=== PATIENT | male | born 1935 | race Caucasian/White ===

== ENCOUNTER 2017-11-18 18:33 | Inpatient (IN) ==
[2017-11-18 21:05] LABS: Bilirubin,Urine Negative (Negative); Blood,Urine Large (Negative); Clarity,Urine Cloudy (Clear); Color,Urine Yellow (Yellow); Glucose,Urine (UA) Normal (Normal); Ketones,Urine Negative (Negative); Leukocyte Esterase,Urine Negative (Negative); Nitrite,Urine Negative (Negative); PH,Urine 5.5 pH Units (5.0-8.0); Protein,Urine 100 mg/dL (Neg-Trace); Specific Gravity,Urine 1.017 (1.010-1.025); Urobilinogen,Urine Normal (Normal)
[2017-11-18] MEDS ORDERED: traMADol 50 MG TABLET PO PRN (21:36)
[2017-11-18] MEDS ORDERED: *HR* HYDROcodone/Acet 5/325 mg TABLET PO PRN (21:36)
[2017-11-18] MEDS ORDERED: Naloxone 0.4 MG/ML INJ IVP PRN (21:36)
[2017-11-18] MEDS ORDERED: Acetaminophen 325 MG TABLET PO PRN (21:36)
[2017-11-18 21:37] LABS: Basophils % 0.2 %; Eosinophils % 0.2 %; Hematocrit 28.2 % (37.5-50.1); Hemoglobin 9.3 g/dL (12.9-16.9); Immature Granulocytes % 1.5 % (0-4); Lymphocytes # 0.9 K/mcL (0.6-4.6); Lymphocytes % 15.4 %; Mean Corpuscular Hemoglobin 28.9 pg (28.0-33.3); Mean Corpuscular Volume 87.6 fL (83.0-100.0); Mean Platelet Volume 9.1 fL (9.4-12.4); Monocytes # 0.3 K/mcL (0.0-1.3); Monocytes % 4.3 %; Neutrophils # 4.7 K/mcL (1.6-8.9); Platelet Count 160 K/mcL (140-400); Red Blood Count 3.22 M/mcL (4.19-5.50); Red Cell Distribution Width 13.3 % (11.5-14.5); Segmented Neutrophils % 78.4 %
[2017-11-18] MEDS ORDERED: Ipratropium/Albuterol Neb 3 ML IH PRN (21:42)
[2017-11-18 21:51] LABS: Albumin 2.7 g/dL (3.5-5.7); Albumin/Globulin Ratio 1.1 (1.1-2.2); Bilirubin,Total 0.4 mg/dL (0.3-1.0); Calcium 9.3 mg/dL (8.6-10.3); Globulin 2.5 g/dL (2.4-3.5); Potassium 3.7 mEq/L (3.5-5.1); Total Protein 5.2 g/dL (6.4-8.9)
[2017-11-18] MEDS ORDERED: Levofloxacin 750 MG/150 ML 750 MG/150 ML BAG IVPB SCH (22:00)
[2017-11-18] MEDS: 0.9 % Sodium Chloride 1,000 ML IVC SCH (22:27)
--- NOTE | 2017-11-18 23:15 | Internal Med History&Physical ---
<Eliazar Conway - Last Filed: 11/19/17 02:40> Date of Encounter: 11/19/17 Time of Encounter: 08:25 Internal Medicine - H&P: HPI Chief complaint: Pneumonia Admitted From: Hospital to Hospital Transfer Plans for Post Hospital Care: Transfer Residential Facility History of present illness: Mr. Sheth is a 82 year old male With history of dementia, CAD, hyperlipidemia, hypertension and recent stroke on 10/14/17 with residual left- sided weakness he was inpatient at the [facility] for rehabilitation. Apparently, while admitted at the [facility], the patient developed high fever and was suspected to have developed pneumonia. He received chest x-rays and then a CT of the abdomen and pelvis which demonstrated bilateral lower lobe infiltrate suspicious for aspiration pneumonia. The patient has apparently had fevers as high as 100.8, has developed worsening cough with sputum production. According to his daughter, the patient has not had these symptoms prior to entering the hospital and she believes that there were developed in the hospital. While at the [facility], the patient was initially started on vancomycin and Zosyn, however he apparently was not improving and continued to have high fevers despite these antibiotics due to concern for worsening infection, the patient was instead transitioned to meropenem, vancomycin, Levaquin and was transferred to [facility] for further workup. Upon arrival, I was able to question the patient's daughter who states that the larger concern is the fact that his left side is extremely weak. Past Med Surg Social Fam HX - Past Medical History Medical history: cancer, dementia, hypertension - Past Surgical History Additional surgical history: back sx; unkown - Social History Smoking Status: Never smoker Smokeless Tobacco Status: No Alcohol use: none Drug use: none Internal Medicine - H&P: Meds 3 Allergy/AdvReac Type Severity Reaction Status Date / Time No Known Allergies Allergy Verified 11/18/17 21:02 ROS unobtainable: due to mental status All Systems PM: A 10-system review of systems was performed and is negative for pertinent findings except as documented above in the HPI. - Constitutional Vitals: Temp Pulse Resp BP Pulse Ox 98.1 F 93 16 137/67 95 11/18/17 20:00 11/18/17 23:00 11/18/17 23:00 11/18/17 23:00 11/18/17 23:00 Exam: Gen: Vitals noted. No acute distress. HEENT: Normocephalic, atraumatic Neck: Supple. No adenopathy. There is a right nodule that is superficial and mobile, likely lipoma Cardiac: RRR, no murmur, +S1/S2 Pulmonary: Bibasilar rales noted on exam, equal chest expansion Abdomen: soft, nontender, no guarding Back: Nontender throughout. Extremities: no BLE edema, nontender calf, no cyanosis or clubbing Neuro: Near-complete left hemiparesis. Patient is semi-fluent, speech pattern and content is not appropriate . AOx1 Psych: Appropriate mood and behavior Internal Med - H&P Results - Labs CBC & Chem 7: 11/18/17 21:20 11/18/17 21:20 Labs: Short CBC 11/18/17 Range/Units 21:20 WBC 6.0 (4.3-11.1) K/mcL Hgb 9.3 L (12.9-16.9) g/dL Hct 28.2 L (37.5-50.1) % Plt Count 160 (140-400) K/mcL Neutrophils # 4.7 (1.6-8.9) K/mcL BMP 11/18/17 21:20 Sodium 138 Potassium 3.7 Chloride 110 H Carbon Dioxide 20 L BUN 32 H Creatinine 2.57 H Glucose 104 Calcium 9.3 Liver Function 11/18/17 Range/Units 21:20 Total Bilirubin 0.4 (0.3-1.0) mg/dL AST 45 H (13-39) Units/L ALT 21 (7-52) Units/L Alkaline Phosphatase 87 (34-104) Units/L Albumin 2.7 L (3.5-5.7) g/dL Urine 11/18/17 Range/Units 20:03 Urine Color Yellow (Yellow) Urine Clarity Cloudy A (Clear) Urine pH 5.5 (5.0-8.0) pH Units Ur Specific [place] 1.017 (1.010-1.025) Urine Protein 100 H (Neg-Trace) mg/dL Urine Glucose (UA) Normal (Normal) mg/dL - Assessment and plan (1) Hospital-acquired pneumonia Current Visit: Yes Status: Acute Assessment and plan: Hospital-acquired pneumonia, demonstrated on chest x-ray and abdominal CT scan The patient has developed clinical signs and symptoms of pneumonia status post CVA This pneumonia is most likely secondary to aspiration considering recent CVA and clinical picture including bibasilar location of pneumonia T101.7, HR 98, WBC 6.0, SpO2 100% on 1L. 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 Patient was started on Aggranox and statin following stroke I will continue these medications at this time Maintain nothing by mouth pending speech eval I will consult PT, OT Qualifiers: CVA mechanism: embolism Precerebral and cerebral artery: middle cerebral artery Laterality of affected vessel: right Qualified Code(s): I63.411 - Cerebral infarction due to embolism of right middle cerebral artery (3) Hypertension Current Visit: Yes Status: Acute Assessment and plan: Continue home nifedipine Qualifiers: Hypertension type: essential hypertension Qualified Code(s): I10 - Essential (primary) hypertension (4) Acute kidney injury superimposed on chronic kidney disease Current Visit: Yes Status: Acute Assessment and plan: HAYDEN on CKD Stage 3 The patient has serum creatinine 2.54 eGFR 24, baseline appears to be ~2.1 He is currently having decent urine output with byrd inplace CT Abd/pelvis at the [facility] showed gas in bladder which was suspicious for possible cystitis Plan -IVF 75mLs/hr up to 2L -Repeat BMP in AM -Repeat UA, Urine culture -Avoid nephrotoxic agents (5) Acute cystitis without hematuria Current Visit: Yes Status: Suspected Assessment and plan: Possible acute cystitis from gas forming organism seen on CT abd/pelvis The patient does have high fever which is more likely explained by pneumonia, however UTI is plausible I will repeat UA, obtain urine culture at this time The patient is being treated with IV Vancomycin, meropenem, levaquin which would cover possible organisms (6) Prostate cancer Current Visit: No Status: Chronic Assessment and plan: Reported history (7) DVT prophylaxis Current Visit: Yes Status: Acute Assessment and plan: SQ Heparin - Time Spent With Patient Total time spent is greater than 50% in coordination of care (as documented) at patient's floor/unit and/or counseling patient: <David De Jesus - Last Filed: 11/19/17 03:48> Date of Encounter: 11/18/17 Time of Encounter: 20:25 Internal Medicine - H&P: HPI History of present illness: Mr. Sheth is a 82 year old male All Systems PM: A 10-system review of systems was performed and is negative for pertinent findings except as documented above in the HPI. - Constitutional Vitals: Temp Pulse Resp BP Pulse Ox 101.7 F H 75 22 122/57 98 11/19/17 00:00 11/19/17 03:08 11/19/17 03:00 11/19/17 03:00 11/19/17 03:00 Internal Med - H&P Results - Labs CBC & Chem 7: 11/18/17 21:20 11/18/17 21:20 Labs: Short CBC 11/18/17 Range/Units 21:20 WBC 6.0 (4.3-11.1) K/mcL Hgb 9.3 L (12.9-16.9) g/dL Hct 28.2 L (37.5-50.1) % Plt Count 160 (140-400) K/mcL Neutrophils # 4.7 (1.6-8.9) K/mcL BMP 11/18/17 21:20 Sodium 138 Potassium 3.7 Chloride 110 H Carbon Dioxide 20 L BUN 32 H Creatinine 2.57 H Glucose 104 Calcium 9.3 Liver Function 11/18/17 Range/Units 21:20 Total Bilirubin 0.4 (0.3-1.0) mg/dL AST 45 H (13-39) Units/L ALT 21 (7-52) Units/L Alkaline Phosphatase 87 (34-104) Units/L Albumin 2.7 L (3.5-5.7) g/dL Urine 11/18/17 Range/Units 20:03 Urine Color Yellow (Yellow) Urine Clarity Cloudy A (Clear) Urine pH 5.5 (5.0-8.0) pH Units Ur Specific [place] 1.017 (1.010-1.025) Urine Protein 100 H (Neg-Trace) mg/dL Urine Glucose (UA) Normal (Normal) mg/dL - Impressions ITS Impressions Chest CT 11/19/17 00:00 IMPRESSION: Aspiration pneumonia involving the bilateral lower lobes with small reactive parapneumonic effusions. Additional aspiration-related sequela include basal predominant airway inflammation and tracheobronchial secretions. Esophageal features suggesting dysmotility and reflux. Mild ascending aortic dilatation measuring up to 4.1 cm in diameter. D/ / Royal Antonio / Royal Antonio Interpreting Provider: Royal Antonio - Attending Attestation I have seen and examined the patient with Dr. Conway and agree with his/her assessment and plan. 82-year-old male who had recent CVA with left-sided weakness was admitted to [facility] on 11/13 after developing high fever and shortness of breath. He was diagnosed with HCAP and has been on treatment with vancomycin and Zosyn which was briefly de-escalated to Unasyn. He had persistent fever and developed worsening consolidation at the lung bases hence was transferred over to [facility] for further management. Prior to the transfer, his antibiotics was escalated to Vanc/Merrem/Levaquin on 11/17. Microbiology results were unrevealing. CT scan at the [facility] also showed thickened bladder wall and gas which could be attributed to Byrd insertion or infectious etiology. He had temperature of 101.7 after the transfer. We will repeat infectious workup and continue the current antibiotics as he was only on it for 24 hours. Also concerning for ongoing aspiration despite dysphagia pureed, nectar thick diet; will keep him NPO and have speech eval. May need to consult pulmonology for bronchoscopy sample and ID for further antibiotics recommendation if he doesn't improve. David De Jesus MD - Time Spent With Patient Total time spent is greater than 50% in coordination of care (as documented) at patient's floor/unit and/or counseling patient:
[2017-11-18] MEDS: Ipratropium/Albuterol Neb 3 ML IH SCH (23:50)
[2017-11-19] MEDS ORDERED: Meropenem 1,000 MG in Water for inj. (sterile) 20 ML 10 ML IVP SCH
[2017-11-19] MEDS: Ipratropium/Albuterol Neb 3 ML IH SCH ×6 (04:18→23:05)
[2017-11-19] MEDS: *HR* Heparin 5,000 UNIT/ML VIAL SQ SCH ×2 (05:28→17:40)
[2017-11-19 05:36] LABS: Basophils % 0.2 %; Eosinophils % 0.2 %; Hematocrit 26.8 % (37.5-50.1); Immature Granulocytes % 1.7 % (0-4); Lymphocytes # 0.9 K/mcL (0.6-4.6); Lymphocytes % 16.7 %; Mean Corpuscular HGB Conc 33.6 g/dL (31.6-35.5); Mean Corpuscular Hemoglobin 29.3 pg (28.0-33.3); Mean Corpuscular Volume 87.3 fL (83.0-100.0); Mean Platelet Volume 9.1 fL (9.4-12.4); Monocytes # 0.2 K/mcL (0.0-1.3); Monocytes % 3.9 %; Platelet Count 148 K/mcL (140-400); Red Blood Count 3.07 M/mcL (4.19-5.50); Red Cell Distribution Width 13.4 % (11.5-14.5); Segmented Neutrophils % 77.3 %
[2017-11-19 05:51] LABS: Platelet Estimate Normal (Normal); Toxic Granulation Present (Not Present)
[2017-11-19 06:08] LABS: Albumin 2.6 g/dL (3.5-5.7); Albumin/Globulin Ratio 1.2 (1.1-2.2); Bilirubin,Total 0.4 mg/dL (0.3-1.0); Calcium 8.9 mg/dL (8.6-10.3); Globulin 2.2 g/dL (2.4-3.5); Magnesium 1.9 mg/dL (1.6-2.6); Potassium 3.3 mEq/L (3.5-5.1); Total Protein 4.8 g/dL (6.4-8.9)
[2017-11-19] MEDS ORDERED: Meropenem 500 MG VIAL ONE (08:39)
[2017-11-19] MEDS ORDERED: NIFEdipine XL (24 HR) 30 MG TAB.ER.24 PO SCH (09:00)
[2017-11-19] MEDS ORDERED: Meropenem 500 MG in Water for inj. (sterile) 20 ML 10 ML IVP SCH (10:00)
[2017-11-19] MEDS ORDERED: Aminoglycoside Consult 1 EACH MC ONE (10:26)
[2017-11-19] MEDS: amLODIPine 5 MG TABLET PO SCH (11:23)
[2017-11-19] MEDS: Aspirin 81 MG TAB.CHEW PO SCH (11:23)
[2017-11-19] MEDS: 0.9 % Sodium Chloride 1,000 ML IVC SCH ×2 (11:23→13:35)
--- NOTE | 2017-11-19 13:07 | Internal Med Progress Note ---
<Lolis Mendez - Last Filed: 11/19/17 16:24> Hospitalist Progress Note - Encounter Date of Encounter: 11/19/17 Time of Encounter: 13:06 - Subjective Interval History: Patient is an 82 yo M with history of cough and persistent left sided weakness s /p stroke on 10/14/17 who presented to the ED on 11/18/17 from [facility] for high fevers and suspected pneumonia. The patient developed high fever and was suspected to have developed pneumonia. CXR and then a CTA abdomen/pelvis demonstrated bilateral lower lobe infiltrate suspicious for aspiration pneumonia without other significant abdominal findings. He was initially started on Vancomycin and Zosyn, however he apparently was not improving thus he was switched to Meropenem, Vancomycin, and Levaquin and was transferred to [facility] for further workup. CT chest here shows likely aspiration pneumonia involving the bilateral lower lobes with small reactive parapneumonic effusions , additional aspiration-related sequela include basal predominant airway inflammation and tracheobronchial secretions, and esophageal features suggesting dysmotility and reflux. Patient does not complain of any pain today, still complains of cough. Could not perform ROS due to AMS. - Exam Vitals: Temp Pulse Resp BP Pulse Ox 99.1 F 86 20 138/76 96 11/19/17 12:05 11/19/17 12:36 11/19/17 12:36 11/19/17 12:36 11/19/17 12:36 Exam: GEN: Ill appearing male in mild acute distress, breathing on room air, A&Ox3, somnolent, able to answer questions but drifts to sleep after ~1 minute HEENT: atraumatic, no cervical lymphadenopathy, right sided 2x3cm superficial fatty lesion, likely lipoma present CV: RRR, no murmurs, no BL LE pitting edema, no JVD RESP: mild end expiratory wheezes, no rales, no rhonchi, no clubbing ABD: BSx4, no organomegaly, nontender to palpation : Colvin present, no gross blood present VASC: non edematous, dorsalis pedis and radial pulses 2/4 - Assessment and Plan (1) Hospital-acquired pneumonia Current Visit: Yes Status: Acute Assessment and Plan: - Likely aspirational source due to impaired swallowing, other possible causes include hospital acquired and community acquired causes - Vitals stable, Patients WBC is 5.2 today, has not had WBC count at [facility] or [facility] , afebrile today, persistent hacking cough, - LA: 1.4, on room air O2 Sat: 95-100. - Speech recommended pureed diet. - Negative MRSA nasal swab at [facility]. [facility] respiratory cultures showed gram positive rods and cocci. - GI and ID consulted, continue IV levofloxacin. - Continue IV vancomycin and meropenem, de-escalation pending ID consult recommendations. - Maintain O2 Sat > 92%. - Start IV protonix to cover for potential chemical pneumonitis. - Sputum and blood cultures pending. Patient NPO, PEG tube placement for nutrition (2) Clostridium difficile colitis Current Visit: Yes Status: Acute Assessment and Plan: - Likely secondary to antibiotic usage - Stool PCR is positive for C Diff, patient had profuse watery diarrhea overnight - Started PO vancomycin 250mg QID, De-escalate antibiotics as tolerated (3) Hypokalemia Current Visit: Yes Status: Acute Assessment and Plan: - K most recent: 3.3 - Given 40 mEq PO, recheck BMP for resolution (4) Acute kidney injury superimposed on chronic kidney disease Current Visit: Yes Status: Acute Assessment and Plan: - Cr now 2.39, down from 2.57 - Appears his baseline is ~2 (5) CVA (cerebral vascular accident) Current Visit: No Status: Chronic Assessment and Plan: - Patient had a Right MCA CVA on 10/14/17 with residual left sided hemiparesis - Will change from aggrenox to ASA and nifedipine to norvasc per nursing recommendations as he seemed to have difficulty swallowing extended release tablets, may require PEG tube and change route of all meds to PEG tube - Speech recommends pureed diet - PT/OT consulted and recommend ECF/SNF placement upon discharge (6) Hypertension Current Visit: Yes Status: Acute Assessment and Plan: - Will change from nifedepine 0.4 to norvasc 10mg due to trouble swallowing extended release tablets (7) DVT prophylaxis Current Visit: Yes Status: Acute - Time Spent with Patient Total time spent is greater than 50% in coordination of care (as documented) at patient's floor/unit and/or counseling patient: Internal Medicine: Result - Labs CBC & Chem 7: 11/19/17 05:22 11/19/17 05:22 Labs: Short CBC 11/18/17 11/19/17 Range/Units 21:20 05:22 WBC 6.0 5.2 (4.3-11.1) K/mcL Hgb 9.3 L 9.0 L (12.9-16.9) g/dL Hct 28.2 L 26.8 L (37.5-50.1) % Plt Count 160 148 (140-400) K/mcL Neutrophils # 4.7 4.0 (1.6-8.9) K/mcL BMP 11/18/17 11/19/17 21:20 05:22 Sodium 138 139 Potassium 3.7 3.3 L Chloride 110 H 114 H Carbon Dioxide 20 L 17 L BUN 32 H 32 H Creatinine 2.57 H 2.39 H Glucose 104 105 Calcium 9.3 8.9 Liver Function 11/18/17 11/19/17 Range/Units 21:20 05:22 Total Bilirubin 0.4 0.4 (0.3-1.0) mg/dL AST 45 H 49 H (13-39) Units/L ALT 21 21 (7-52) Units/L Alkaline Phosphatase 87 93 (34-104) Units/L Albumin 2.7 L 2.6 L (3.5-5.7) g/dL Urine 11/18/17 Range/Units 20:03 Urine Color Yellow (Yellow) Urine Clarity Cloudy A (Clear) Urine pH 5.5 (5.0-8.0) pH Units Ur Specific [place] 1.017 (1.010-1.025) Urine Protein 100 H (Neg-Trace) mg/dL Urine Glucose (UA) Normal (Normal) mg/dL - Impressions Impressions Chest CT 11/19/17 00:00 IMPRESSION: Aspiration pneumonia involving the bilateral lower lobes with small reactive parapneumonic effusions. Additional aspiration-related sequela include basal predominant airway inflammation and tracheobronchial secretions. Esophageal features suggesting dysmotility and reflux. Mild ascending aortic dilatation measuring up to 4.1 cm in diameter. D/ / Royal Antonio / Royal Antonio Interpreting Provider: Royal Antonio Consult Discharge Plan - Plan [facility]errals: [facility]Primary Care Provider[facility] - <Yo Wong Last Filed: 11/19/17 18:30> Hospitalist Progress Note - Encounter Date of Encounter: 11/19/17 - Exam Vitals: Temp Pulse Resp BP Pulse Ox 98.6 F 93 20 146/80 100 11/19/17 17:07 11/19/17 16:39 11/19/17 16:39 11/19/17 16:39 11/19/17 16:39 - Time Spent with Patient Total time spent is greater than 50% in coordination of care (as documented) at patient's floor/unit and/or counseling patient: Internal Medicine: Result - Labs CBC & Chem 7: 11/19/17 05:22 11/19/17 05:22 Labs: Short CBC 11/18/17 11/19/17 Range/Units 21:20 05:22 WBC 6.0 5.2 (4.3-11.1) K/mcL Hgb 9.3 L 9.0 L (12.9-16.9) g/dL Hct 28.2 L 26.8 L (37.5-50.1) % Plt Count 160 148 (140-400) K/mcL Neutrophils # 4.7 4.0 (1.6-8.9) K/mcL BMP 11/18/17 11/19/17 21:20 05:22 Sodium 138 139 Potassium 3.7 3.3 L Chloride 110 H 114 H Carbon Dioxide 20 L 17 L BUN 32 H 32 H Creatinine 2.57 H 2.39 H Glucose 104 105 Calcium 9.3 8.9 Liver Function 11/18/17 11/19/17 Range/Units 21:20 05:22 Total Bilirubin 0.4 0.4 (0.3-1.0) mg/dL AST 45 H 49 H (13-39) Units/L ALT 21 21 (7-52) Units/L Alkaline Phosphatase 87 93 (34-104) Units/L Albumin 2.7 L 2.6 L (3.5-5.7) g/dL Urine 11/18/17 Range/Units 20:03 Urine Color Yellow (Yellow) Urine Clarity Cloudy A (Clear) Urine pH 5.5 (5.0-8.0) pH Units Ur Specific [place] 1.017 (1.010-1.025) Urine Protein 100 H (Neg-Trace) mg/dL Urine Glucose (UA) Normal (Normal) mg/dL - Impressions Impressions Chest CT 11/19/17 00:00 IMPRESSION: Aspiration pneumonia involving the bilateral lower lobes with small reactive parapneumonic effusions. Additional aspiration-related sequela include basal predominant airway inflammation and tracheobronchial secretions. Esophageal features suggesting dysmotility and reflux. Mild ascending aortic dilatation measuring up to 4.1 cm in diameter. D/ / Royal Antonio / Royal Antonio Interpreting Provider: Royal Antonio - Attending Attestation I examined this patient and my medical decision-making was reviewed with the Resident Physician Dr. Mendez. I agree with the documented findings, disposition and treatment plan as described except to the extent set forth below. Mr. Sheth is a 82 year old male With history of dementia, CAD, hyperlipidemia, hypertension and recent stroke on 10/14/17 with residual left- sided weakness he was inpatient at the [facility] for rehabilitation. Apparently, while admitted at the [facility], the patient developed high fever and was suspected to have developed pneumonia. He was admitted into their ICU and started him broad spec abx Zosyn and Vancomycin. However his condition started deteriorating even after switching abx to Meropenem and Vancomycin. Pt was trasnefrred to our ICU y/d. Today he is alert, awake and O to place , person. Denied any CP. Cough + Resp secretions + Gen: A, A, O x 2 Chest: Diminished BS b/l, crackles, ronchi + Heart: s1S2+ a/p 1. Sepsis with Pneumonia 2. Aspiration PNA Broad spec abx.. Switched to Zosyn ID consulted Duoneb and O2 strict NPO IV hydration 4. Dysphagia 5. Esophageal dysmotility 6. GERD placed on PPI BID GI consulted for further eval may need PEG tube placement too will talk to family and GI 7. C. Diff colitis on Vancomycin PO Medically stable to transfer to tele <Lolis Mendez M - Last Filed: 11/19/17 16:24> (5) CVA (cerebral vascular accident) Qualifiers: CVA mechanism: embolism Precerebral and cerebral artery: middle cerebral artery Laterality of affected vessel: right Qualified Code(s): I63.411 - Cerebral infarction due to embolism of right middle cerebral artery (6) Hypertension Qualifiers: Hypertension type: essential hypertension Qualified Code(s): I10 - Essential (primary) hypertension
[2017-11-19] MEDS: Vancomycin Oral Soln 125 MG/2.5 ML UDC PO SCH ×3 (13:37→19:50)
--- NOTE | 2017-11-19 15:57 | Gastroenterology Consult Note ---
<Eliazar Latif Joey - Last Filed: 11/19/17 15:55> Date of Encounter: 11/19/17 Time of Encounter: 11:15 - Assessment and plan (1) C. difficile diarrhea Current Visit: Yes Status: Acute Assessment and plan: Continue PO Vanco. (2) Hospital-acquired pneumonia Current Visit: Yes Status: Acute Assessment and plan: Likely due to aspiration. Plan for EGD with possible PEG tube placement. No family at bedside to discuss PEG tube. (3) CVA (cerebral vascular accident) Current Visit: No Status: Chronic Qualifiers: CVA mechanism: embolism Precerebral and cerebral artery: middle cerebral artery Laterality of affected vessel: right Qualified Code(s): I63.411 - Cerebral infarction due to embolism of right middle cerebral artery (4) GERD (gastroesophageal reflux disease) Current Visit: Yes Status: Acute Assessment and plan: Continue PPI and complete EGD. Qualifiers: Esophagitis presence: esophagitis presence not specified Qualified Code(s) : K21.9 - Gastro-esophageal reflux disease without esophagitis - Time Spent With Patient Total time spent is greater than 50% in coordination of care (as documented) at patient's floor/unit and/or counseling patient: GI History of Present Illness - Data of Consult Patient: new to practice Consult date: 11/19/17 Requesting Physician: Yo Wong MD - Consult Narrative Reason for consult: asspiration pneumonia, GERD History of present illness: Mr. Sheth is a 82 year old male with PMHx of dementia, CAD, HLD, HTN, and recent stroke on 10/14/2017 with residual left-sided weakness. He was residual left-sided weakness. The patient developed high fever and was suspected to have developed pneumonia. CXR and then a CT A/P which demonstrated bilateral lower lobe infiltrate suspicious for aspiration pneumonia. He was initially started on Vancomycin and Zosyn, however he apparently was not improving and continued to have high fevers despite these antibiotics due to concern for worsening infection, the patient was instead transitioned to Meropenem, Vancomycin, Levaquin and was transferred to [facility] for further workup. CT chest here shows aspiration pneumonia involving the bilateral lower lobes with small reactive parapneumonic effusions, additional aspiration-related sequela include basal predominant airway inflammation and tracheobronchial secretions, and esophageal features suggesting dysmotility and reflux. History obtained for chart review as patient is non-verbal and no family at bedside. Procedures: None NSAIDs: None Anticoagulation: None Past Med Surg Social Fam HX - Past Medical History Medical history: cancer, dementia, hypertension - Past Surgical History Additional surgical history: back sx; unkown - Social History Smoking Status: Never smoker Smokeless Tobacco Status: No Alcohol use: none Drug use: none ROS unobtainable: due to mental status - Constitutional Vitals: Temp Pulse Resp BP Pulse Ox 99.1 F 95 16 136/67 100 11/19/17 12:05 11/19/17 15:00 11/19/17 15:14 11/19/17 15:00 11/19/17 15:14 General appearance: Present: cooperative, no acute distress Exam: Responds to name, but patient is nonverbal - Head Head exam: Present: atraumatic, normocephalic - Eye Eye exam: Present: normal appearance, sclera anicteric - ENT ENT exam: Present: mucous membranes dry - Neck Neck exam general surgery: Present: normal inspection, trachea midline - Respiratory Respiratory exam: Present: decreased breath sounds, CTAB. Absent: rales, rhonchi - Cardiovascular Cardiovascular exam: Present: RRR, +S1, +S2 - GI/Abdominal GI/Abdominal exam: Present: soft, no peritoneal signs. Absent: distended, firm , guarding, tenderness - Rectal Rectal exam: Present: deferred - Extremities Exam Extremities exam: Present: warm - Neurological Exam Neurological exam: Present: speech deficit - Skin Skin exam: Present: dry, intact, normal color, warm Results - Labs CBC & Chem 7: 11/19/17 05:22 11/19/17 05:22 Labs: Last Result Calcium 8.9 mg/dL (8.6-10.3) 11/19/17 05:22 Entire Visit Hgb 9.0 g/dL (12.9-16.9) L 11/19/17 05:22 Hct 26.8 % (37.5-50.1) L 11/19/17 05:22 Total Bilirubin 0.4 mg/dL (0.3-1.0) 11/19/17 05:22 AST 49 Units/L (13-39) H 11/19/17 05:22 ALT 21 Units/L (7-52) 11/19/17 05:22 - Impressions Impressions Chest CT 11/19/17 00:00 IMPRESSION: Aspiration pneumonia involving the bilateral lower lobes with small reactive parapneumonic effusions. Additional aspiration-related sequela include basal predominant airway inflammation and tracheobronchial secretions. Esophageal features suggesting dysmotility and reflux. Mild ascending aortic dilatation measuring up to 4.1 cm in diameter. D/ / Royal Antonio / Royal Antonio Interpreting Provider: Royal Antonio Consult Discharge Plan - Plan [facility]errals: [facility] [Primary Care Provider[facility] - <Ruby Wallace - Last Filed: 11/19/17 17:49> Date of Encounter: 11/19/17 - Time Spent With Patient Total time spent is greater than 50% in coordination of care (as documented) at patient's floor/unit and/or counseling patient: GI History of Present Illness - Data of Consult Requesting Physician: Yo Wong MD - Consult Narrative History of present illness: Mr. Sheth is a 82 year old male - Constitutional Vitals: Temp Pulse Resp BP Pulse Ox 98.6 F 93 20 146/80 100 11/19/17 17:07 11/19/17 16:39 11/19/17 16:39 11/19/17 16:39 11/19/17 16:39 Results - Labs CBC & Chem 7: 11/19/17 05:22 11/19/17 05:22 Labs: Last Result Calcium 8.9 mg/dL (8.6-10.3) 11/19/17 05:22 Entire Visit Hgb 9.0 g/dL (12.9-16.9) L 11/19/17 05:22 Hct 26.8 % (37.5-50.1) L 11/19/17 05:22 Total Bilirubin 0.4 mg/dL (0.3-1.0) 11/19/17 05:22 AST 49 Units/L (13-39) H 11/19/17 05:22 ALT 21 Units/L (7-52) 11/19/17 05:22 - Impressions Impressions Chest CT 11/19/17 00:00 IMPRESSION: Aspiration pneumonia involving the bilateral lower lobes with small reactive parapneumonic effusions. Additional aspiration-related sequela include basal predominant airway inflammation and tracheobronchial secretions. Esophageal features suggesting dysmotility and reflux. Mild ascending aortic dilatation measuring up to 4.1 cm in diameter. D/ / Royal Antonio / Royal Antonio Interpreting Provider: Royal Antonio - Attending Attestation I have personally performed a face to face evaluation on this patient. I have reviewed and agree with the care plan. History and Exam by me shows: Patient seen at the bedside. Per patient at home he has been eating well and denies any trouble swallowing. No family member present at the bedside. CT chest did showed esophageal dysmotility along with some reflux finding. On Examination patient abdomen is benign. Assessment: Patient with bilateral pneumonia most probably due to esophageal dysmotility disorder. Rule out any structural causes. Recommendation: EGD to rule out esophageal causes for patient aspiration pneumonia
[2017-11-19] MEDS: Piperacillin/Tazobactam 3.375 GM in 0.9 % Sodium Chloride Mini Bag 100 ML IVPB SCH ×2 (17:40→23:34)
[2017-11-19] MEDS: Pantoprazole 40 MG VIAL IVP SCH (17:40)
--- NOTE | 2017-11-19 23:53 | Infectious Disease Consult ---
Date of Encounter: 11/19/17 Time of Encounter: 15:00 Assessment and Plan (1) Severe sepsis Status: Acute Assessment and plan: had 3 SIRS on admission with HAYDEN secondary to aspiratoin pneumonia and likely C diff colitis await blood cultures to finalize (2) Aspiration pneumonia of both lower lobes due to regurgitated food Status: Acute Assessment and plan: secondary to pharyngeal dysmotility likely to recent CVA causative organism not clear was on vancomycin/meropenem/levofloxacin at the [facility] sputum growing GPC and GPR with final ID pending Keep patient NPO speech pathology to evaluate get sputum culture if possible keep bed elevated at 45 degrees d/c meropenem and levofloxacin start zosyn continue vancomycin until [facility] goal vancomycin trough around 15 monitor labs and for drug toxicity dose adjust antibiotics based on CrCl (3) C. difficile diarrhea Status: Acute Assessment and plan: Severe, first episode Currently on oral Vancomycin if aspiration is a concern we might have to d/c oral vancomycin and start IV flagyl and vancomycin per rectum? try to minimize antibiotics use will d/c with the hospitalist team. (4) Esophageal dysmotility Status: Acute Assessment and plan: secondary to recent CVA? GI consulted (5) Left hemiplegia Status: Acute (6) CVA (cerebral vascular accident) Status: Chronic Qualifiers: CVA mechanism: embolism Precerebral and cerebral artery: middle cerebral artery Laterality of affected vessel: right Qualified Code(s): I63.411 - Cerebral infarction due to embolism of right middle cerebral artery (7) Acute kidney injury superimposed on chronic kidney disease Status: Acute Infectious Disease HPI - Data of Consult Patient: new to practice Consult date: 11/19/17 Requesting Physician: Yo Wong MD Primary Care Provider: [facility] [place] - Consult Narrative Reason for consult: severe sepsis History of present illness: Mr. Sheth is a 82 year old male Patient is an 82 year old gentleman who presented to [place] as a transfer from the [facility] for sepsis, we are consulted today for aspiration pneumonia and C diff. Patient is an 82 year old gentleman with past medical history mentioned below including dementia, CAD, hyperlipidemia, HTN and a recent stroke on 10/14/17 with residual left hemiplegia and dysphagia was at the [facility] for rehab. At the [facility] patient was having high temp and was thought it was due to aspiration pneumonia. Patient also had an ileus most likely per KUB. patient was given meropenem and levofloxacin but continued to do worse clinically so he was transferred to [place] ICU for evaluation. I did review the records from the [facility] and sputum culture was non revealing but showed GPC and GPR. X-rays from the [facility] reviewed as well. Since admission, the patient has been febrile with a Tmax of 101.7F, some tachycardia and tachypnea. He was hemodynamically stable not requiring pressers. labs on admission revealed WBC of 6 with normal diff. BUN/Cr of 32/ 2.57, normal LFTs, normal Urine and C diff positive. random vancomycin was 19. Blood cultures obtained on 11/18 and so far no growth. A CT chest revealed aspiration pneumonia in the bilateral lower lobes with small reactive papa pneumonic effusions. Esophageal features suggesting dysmotility and reflux. Currently patient laying in bed, both daughters at bedside. He tells me he doesnt feel well. He does have a cough that appears non productive. PE remarkable for edema and immobility of the LUE. CC: Yo Wong MD Past Med Surg Social Fam HX - Past Medical History Medical history: cancer, dementia, hypertension - Past Surgical History Additional surgical history: back sx; unkown - Social History Smoking Status: Never smoker Smokeless Tobacco Status: No Alcohol use: none Drug use: none Infectious Disease-CN:Meds NIFEdipine [Adalat cc] 90 mg PO DAILY 11/19/17 [History] 3 Allergy/AdvReac Type Severity Reaction Status Date / Time No Known Allergies Allergy Verified 11/18/17 21:02 Review of systems: 10 point ROS done, negative other for what's mentioned in the HPI Exam - Constitutional Vitals: Temp Pulse Resp BP Pulse Ox 99.4 F 89 17 140/83 94 11/19/17 19:53 11/19/17 23:00 11/19/17 23:05 11/19/17 23:05 11/19/17 23:05 General appearance: febrile, cooperative, disheveled, no acute distress - Head Head exam: Present: atraumatic, normocephalic - Eye Eye exam: Present: EOMI, PERRL, scleral icterus - ENT ENT exam: Present: mucous membranes dry Additional comments: positive oral thrush - Neck Neck exam: Present: normal inspection Additional comments: mobile non tender no painful mass right neck present for 2 years - Respiratory Additional comments: chest expanding symmetrically. some ronchi at the bases and some fine expiratory wheezing. Diminished breath sounds - Cardiovascular Cardiovascular exam: Present: RRR, +S1, +S2 - GI/Abdominal GI/Abdominal exam: Present: hyperactive bowel sounds, soft. Absent: distended, firm, tenderness - Extremities Exam Additional comments: LUE edema and asymmetry compared to right - Neurological Exam Neurological exam: Present: alert, oriented X3, speech deficit. Absent: facial droop Additional comments: left hemiparesis - Psychiatric Psychiatric exam: Present: depressed, flat affect - Skin Skin exam: Present: normal color. Absent: rash Infectious Disease CN: Results - Labs CBC & Chem 7: 11/19/17 05:22 11/19/17 05:22 Cultures: Cultures 11/18/17 21:20 Blood Culture - Preliminary Peripheral Venipuncture Culture is incubating and being continuously monitored for growth. Final report to follow. 11/18/17 21:20 Blood Culture - Preliminary Peripheral Venipuncture Culture is incubating and being continuously monitored for growth. Final report to follow. Serology: Serology 11/19/17 11/18/17 Range/Units 05:45 20:03 Urine Color Yellow (Yellow) Urine Clarity Cloudy A (Clear) Urine pH 5.5 (5.0-8.0) pH Units Ur Specific [place] 1.017 (1.010-1.025) Urine Protein 100 H (Neg-Trace) mg/dL Urine Glucose (UA) Normal (Normal) mg/dL Urine Ketones Negative (Negative) mg/dL Urine Blood Large H (Negative) Urine Nitrite Negative (Negative) Urine Bilirubin Negative (Negative) Urine Urobilinogen Normal (Normal) mg/dL Ur Leukocyte Esterase Negative (Negative) Stl C. diff Tox B Gene Positive A (Negative) Consult Discharge Plan - Plan [facility]errals: [facility] [Primary Care Provider] -
[2017-11-20] MEDS: Ipratropium/Albuterol Neb 3 ML IH SCH ×6 (03:24→23:37)
[2017-11-20 05:40] LABS: Basophils % 0.5 %; Eosinophils # 0.1 K/mcL (0.0-0.6); Eosinophils % 1.3 %; Hematocrit 25.5 % (37.5-50.1); Hemoglobin 8.5 g/dL (12.9-16.9); Lymphocytes # 0.7 K/mcL (0.6-4.6); Lymphocytes % 17.6 %; Mean Corpuscular HGB Conc 33.3 g/dL (31.6-35.5); Mean Corpuscular Hemoglobin 28.2 pg (28.0-33.3); Mean Corpuscular Volume 84.7 fL (83.0-100.0); Mean Platelet Volume 9.2 fL (9.4-12.4); Monocytes # 0.2 K/mcL (0.0-1.3); Monocytes % 5.5 %; Neutrophils # 2.8 K/mcL (1.6-8.9); Platelet Count 164 K/mcL (140-400); Red Blood Count 3.01 M/mcL (4.19-5.50); Red Cell Distribution Width 13.7 % (11.5-14.5); Segmented Neutrophils % 71.1 %
[2017-11-20] MEDS: Pantoprazole 40 MG VIAL IVP SCH ×2 (05:42→17:01)
[2017-11-20] MEDS: *HR* Heparin 5,000 UNIT/ML VIAL SQ SCH ×2 (05:43→17:01)
[2017-11-20 05:58] LABS: Calcium 9.1 mg/dL (8.6-10.3); Potassium 3.3 mEq/L (3.5-5.1)
[2017-11-20] MEDS ORDERED: Potassium Chloride 40 MEQ, Lidocaine 1% 2 ML in D5% in Water 500 ML IVPB ONE (07:39)
[2017-11-20] MEDS ORDERED: Simethicone 40 MG/0.6 ML MLS IR ONE (08:06)
[2017-11-20] MEDS ORDERED: Tetracaine/Benzocaine/Butamben 200MG/SPRAY (100SPY/BOT) MM ONE (08:06)
[2017-11-20] MEDS ORDERED: *HR* FentaNYL (PF) 100 MCG/2 ML VIAL IVP ONE (08:06)
[2017-11-20] MEDS ORDERED: *HR* Midazolam HCl 5 MG/5 ML VIAL IVP ONE (08:06)
--- NOTE | 2017-11-20 08:09 | Pre-Sedation Evaluation ---
Pre-sedation evaluation - Pre-sedation checklist Date of procedure: 11/20/17 Recent Vitals: Last Vital Signs Temp 97.7 F 11/20/17 07:43 Pulse 83 11/20/17 05:00 Resp 12 11/20/17 07:14 BP 142/80 11/20/17 05:00 Pulse Ox 94 11/20/17 07:14 ASA Classification *see protocol: CLASS III-Severe systemic disease, CLASS IV- Severe systemic disease/constant threat to pt's life Plan of Care: Pt appropriate candidate for procedure/moderate/conscious sedation , Risks/benefits of procedure/sedation discussed w/ patient/family Cardiac Registry (Cardio Only) - Functional Capacity - Clincal Frailty Scale
[2017-11-20] MEDS ORDERED: Levofloxacin 500 MG/100 ML 500 MG/100 ML BAG IVPB SCH (09:00)
[2017-11-20] MEDS ORDERED: LEVOFLOXACIN 750 MG/150 ML IVPB SCH (09:00)
[2017-11-20] MEDS: Aspirin 81 MG TAB.CHEW PO SCH (09:02)
[2017-11-20] MEDS: Vancomycin Oral Soln 125 MG/2.5 ML UDC PO SCH ×4 (09:02→20:26)
[2017-11-20] MEDS: amLODIPine 5 MG TABLET PO SCH (09:02)
[2017-11-20] MEDS: Piperacillin/Tazobactam 3.375 GM in 0.9 % Sodium Chloride Mini Bag 100 ML IVPB SCH ×2 (09:03→17:00)
[2017-11-20] MEDS ORDERED: Vancomycin 500 MG in 0.9 % Sodium Chloride Mini Bag 100 ML IVPB ONE (11:00)
--- NOTE | 2017-11-20 13:33 | Infectious Disease Progress No ---
Date of Encounter: 11/20/17 Time of Encounter: 10:30 - Assessment and Plan (1) Severe sepsis Current Visit: Yes Status: Acute The patient had three SIRS criteria on admission with HAYDEN. Likely secondary to aspiration pneumonia and C. diff. Improved. He was afebrile overnight. Tachycardia improved. HAYDEN trending down. Blood cultures drawn n11/18/17 are NGTD x 2 sets. (2) Aspiration pneumonia of both lower lobes due to regurgitated food Current Visit: Yes Status: Acute Location: Bilateral lower lobes. Likely secondary to dysphagia from recent CVA. Causative organism H. influenzae per sputum culture obtained at the [facility]. Speech therapy evaluation noted. Patient tolerated nectar-thick liquids and pureed textures. Repeat sputum culture if able. Aspiration precautions at all times. Continue Zosyn 3.375 grams IV Q8H. Discontinue Vancomycin. Duration of treatment depends on the clinical picture. Monitor renal function and dose-adjust antibiotics. (3) C. difficile diarrhea Current Visit: Yes Status: Acute Severe, initial episode. Currently has rectal tube. Continue Vancomycin 125mg PO QID. Duration of treatment depends on the clinical picture. He will require additional antibiotics for the aspiration pneumonia, so we may need to prolong the course of C. diff treatment past the typical 14 day duration. Continue C. diff precautions per protocol. (4) Acute kidney injury superimposed on chronic kidney disease Current Visit: Yes Status: Acute Likely secondary to sepsis. Improved. Continue to trend. Dose-adjust antibiotics. Avoid nephrotoxins as able. 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 GI consult noted. Status post EGD this morning. Await report and further recommendations from the GI team. (7) Left hemiplegia Current Visit: Yes Status: Acute Secondary to CVA. Frequent position changes/passive ROM per nursing protocol. - Subjective Interval history: Patient seen and examined. No acute events noted overnight. Patient drowsy from EGD performed this morning. Unable to provide me with any review of systems information. Discussed with nursing. At this point, PEG tube is on hold and patient was evaluated by speech therapy and passed trials of pureed texture and nectar thickened liquids. Rectal tube noted to be pain with scant amount of liquid brown stool noted in the tubing. No family at the bedside. Infect Dis PN-Objective Data - Labs CBC & Chem 7: 11/21/17 05:13 11/21/17 05:13 Labs: Laboratory Results - last 24 hr 11/19/17 11/19/17 11/20/17 11:38 23:22 05:00 WBC 4.0 L RBC 3.01 L Hgb 8.5 L Hct 25.5 L MCV 84.7 MCH 28.2 MCHC 33.3 RDW 13.7 Plt Count 164 MPV 9.2 L Immature Gran % 4.0 Seg Neutrophils % 71.1 Lymphocytes % 17.6 Monocytes % 5.5 Eosinophils % 1.3 Basophils % 0.5 Neutrophils # 2.8 Lymphocytes # 0.7 Monocytes # 0.2 Eosinophils # 0.1 Basophils # 0.0 Sodium Potassium Chloride Carbon Dioxide BUN Creatinine Est GFR ( Amer) Est GFR (Non-Af Amer) BUN/Creatinine Ratio Glucose POC Glucose 102 H 91 Calculated Osmolality Calcium Random Vancomycin 11/20/17 05:00 WBC RBC Hgb Hct MCV MCH MCHC RDW Plt Count MPV Immature Gran % Seg Neutrophils % Lymphocytes % Monocytes % Eosinophils % Basophils % Neutrophils # Lymphocytes # Monocytes # Eosinophils # Basophils # Sodium 143 Potassium 3.3 L Chloride 117 H Carbon Dioxide 18 L BUN 32 H Creatinine 2.12 H Est GFR ( Amer) 37 L Est GFR (Non-Af Amer) 30 L BUN/Creatinine Ratio 15 Glucose 97 POC Glucose Calculated Osmolality 303 H Calcium 9.1 Random Vancomycin 13 Cultures: Cultures 11/18/17 20:03 Urine Culture - Preliminary Urine,Clean Catch No growth. 11/18/17 21:20 Blood Culture - Preliminary Peripheral Venipuncture Culture is incubating and being continuously monitored for growth. Final report to follow. 11/18/17 21:20 Blood Culture - Preliminary Peripheral Venipuncture Culture is incubating and being continuously monitored for growth. Final report to follow. Serology 11/19/17 11/18/17 Range/Units 05:45 20:03 Urine Color Yellow (Yellow) Urine Clarity Cloudy A (Clear) Urine pH 5.5 (5.0-8.0) pH Units Ur Specific [place] 1.017 (1.010-1.025) Urine Protein 100 H (Neg-Trace) mg/dL Urine Glucose (UA) Normal (Normal) mg/dL Urine Ketones Negative (Negative) mg/dL Urine Blood Large H (Negative) Urine Nitrite Negative (Negative) Urine Bilirubin Negative (Negative) Urine Urobilinogen Normal (Normal) mg/dL Ur Leukocyte Esterase Negative (Negative) Stl C. diff Tox B Gene Positive A (Negative) Exam - Constitutional Vitals: Temp Pulse Resp BP Pulse Ox 98.2 F 72 16 134/71 97 11/20/17 11:33 11/20/17 13:00 11/20/17 13:00 11/20/17 13:00 11/20/17 13:00 General appearance: average body habitus, no acute distress, no febrile - Head Head exam: Present: atraumatic, normal inspection, normocephalic - Eye Eye exam: Present: normal appearance Additional comments: Patient does not resist passive eye opening. He does not participate in the eye exam. - ENT ENT exam: Present: mucous membranes dry Additional comments: Very poor dentition noted. - Neck Neck exam: Present: normal inspection - Respiratory Respiratory exam: Present: rales (Bilateral bases), rhonchi (Scattered throughout). Absent: respiratory distress, wheezes - Cardiovascular Cardiovascular exam: Present: RRR, +S1, +S2 - GI/Abdominal GI/Abdominal exam: Present: normal bowel sounds, soft. Absent: distended, tenderness Additional comments: Colvin catheter noted to be draining clear urine. Rectal scant amount of brown liquid drainage noted in the tubing. - Extremities Exam Extremities exam: Present: normal inspection. Absent: joint swelling, pedal edema, tenderness - Neurological Exam Neurological exam: Present: altered (Drowsy). Absent: facial droop Additional comments: Does not participate in exam or answer questions. Does respond to painful stimuli. - Skin Skin exam: Present: dry, intact, normal color, warm Consult Discharge Plan - Plan Referrals: [facility] [Primary Care Provider] - - Attending Attestation I examined this patient and my medical decision-making was reviewed with the Resident Physician. I agree with the documented findings, disposition and treatment plan as described except to the extent set forth below.
--- NOTE | 2017-11-20 14:21 | Internal Med Progress Note ---
<Lolis Mendez - Last Filed: 11/20/17 16:13> Hospitalist Progress Note - Encounter Date of Encounter: 11/20/17 Time of Encounter: 14:21 - Subjective Interval History: Patient is an 82 yo M with history of cough and persistent left sided weakness s /p stroke on 10/14/17 who presented to the ED on 11/18/17 from [facility] for high fevers and suspected pneumonia. The patient developed high fever and was suspected to have developed pneumonia. CXR and then a CTA abdomen/pelvis demonstrated bilateral lower lobe infiltrate suspicious for aspiration pneumonia without other significant abdominal findings. He was initially started on Vancomycin and Zosyn, however he apparently was not improving thus he was switched to Meropenem, Vancomycin, and Levaquin and was transferred to [facility] for further workup. CT chest here shows likely aspiration pneumonia involving the bilateral lower lobes with small reactive parapneumonic effusions , additional aspiration-related sequela include basal predominant airway inflammation and tracheobronchial secretions, and esophageal features suggesting dysmotility and reflux. Patient does not complain of any pain today, still complains of cough. Much more alert and participates well with exam. - Exam Vitals: Temp Pulse Resp BP Pulse Ox 98.2 F 72 16 134/71 97 11/20/17 11:33 11/20/17 13:00 11/20/17 13:00 11/20/17 13:00 11/20/17 13:00 Exam: GEN: Ill appearing male breathing on room air, A&Ox3, more alert today, able to answer questions appropriately and participate in exam HEENT: atraumatic, no cervical lymphadenopathy, right sided 2x3cm superficial fatty lesion overlying right SCM, likely lipoma present CV: RRR, no murmurs, no BL LE pitting edema, no JVD RESP: mild end expiratory wheezes, no rales, no rhonchi, no clubbing ABD: BSx4, no organomegaly, nontender to palpation : Colvin present, no gross blood present, rectal tube draining brown, liquid stool VASC: LUE edematous, likely dependent, dorsalis pedis and radial pulses 2/4 - Assessment and Plan (1) Hospital-acquired pneumonia Current Visit: Yes Status: Acute Assessment and Plan: - Likely aspirational, [facility] the causative sputum organism appears to be H. influenza - Patient is on room air, vitals are stable today, white count at 4. - Blood cultures drawn but pending, no growth to date - Can be moved to the floor from ICU, was unable to move yesterday due to bed availability - Changed antibiotics per ID recommendations yesterday to Vanc and Zosyn, stopped Levaquin and Mirepenam. Today ID recommends holding IV Vanc, will continue only on IV zosyn. - F[facility] with [facility] to check cultures done by [facility] for culture sensitivities (2) Clostridium difficile colitis Current Visit: Yes Status: Acute Assessment and Plan: - Likely secondary to antibiotic usage, stool PCR was positive for C. difficile - Patient has received 1 day of PO vanc, continues on rectal tube - Due to high aspiration risk, will switch to IV flagyl or Vancomycin per rectum should he develop any signs of active aspiration, none present at this time (3) Esophageal dysmotility Current Visit: Yes Status: Acute Assessment and Plan: - likely related to stroke in October 2017 - EGD performed today by GI showed no structural abnormalities and no necessity of PEG tube. - Patient can be started on pureed diet per speech recommendations - keep patient on PPI for 8 weeks per GI recommendations. On protonix 40mg now (4) Hypokalemia Current Visit: Yes Status: Acute Assessment and Plan: - K on recheck is persistent at 3.3 - Given 40 mEq IV KCl with lidocaine, recheck BMP this evening for resolution (5) Acute kidney injury superimposed on chronic kidney disease Current Visit: Yes Status: Acute Assessment and Plan: - GFR and Cr are improving, Cr is back to baseline at 2.12 - Continue IV Fluids, follow GFR, Cr for improvement. Hold nephrotoxic medications. (6) CVA (cerebral vascular accident) Current Visit: No Status: Chronic Assessment and Plan: - Persistent hemiplegia on left side with dependent swelling of left arm due to inactivity, will continue to monitor - Continue ASA and lipitor - Speech recommends pureed diet - PT/OT consulted and recommend ECF/SNF placement upon discharge - [facility] has bed hold for patient to return upon discharge. (7) Hypertension Current Visit: Yes Status: Acute Assessment and Plan: - Continues on norvasc 10mg, changed from nifedepine 0.4mg due to trouble swallowing extended release tablets (8) DVT prophylaxis Current Visit: Yes Status: Acute Assessment and Plan: - Continues on heparin - Time Spent with Patient Total time spent is greater than 50% in coordination of care (as documented) at patient's floor/unit and/or counseling patient: Internal Medicine: Result - Labs CBC & Chem 7: 11/20/17 05:00 11/20/17 05:00 Labs: Short CBC 11/20/17 Range/Units 05:00 WBC 4.0 L (4.3-11.1) K/mcL Hgb 8.5 L (12.9-16.9) g/dL Hct 25.5 L (37.5-50.1) % Plt Count 164 (140-400) K/mcL Neutrophils # 2.8 (1.6-8.9) K/mcL BMP 11/20/17 05:00 Sodium 143 Potassium 3.3 L Chloride 117 H Carbon Dioxide 18 L BUN 32 H Creatinine 2.12 H Glucose 97 Calcium 9.1 Consult Discharge Plan - Plan [facility]errals: [facility] [Primary Care Provider] - <Tyson Kate - Last Filed: 11/20/17 17:34> Hospitalist Progress Note - Encounter Date of Encounter: 11/20/17 - Exam Vitals: Temp Pulse Resp BP Pulse Ox 98.1 F 89 16 134/71 97 11/20/17 16:11 11/20/17 14:25 11/20/17 15:18 11/20/17 13:00 11/20/17 15:18 - Summary of Assessment and Plan Summary of Assessment and Plan: I examined this patient and my medical decision-making was reviewed with the Resident Physician Dr. Marquez. I agree with the documented findings, disposition and treatment plan as described except to the extent set forth below. - Time Spent with Patient Total time spent is greater than 50% in coordination of care (as documented) at patient's floor/unit and/or counseling patient: Internal Medicine: Result - Labs CBC & Chem 7: 11/20/17 05:00 11/20/17 05:00 Labs: Short CBC 11/20/17 Range/Units 05:00 WBC 4.0 L (4.3-11.1) K/mcL Hgb 8.5 L (12.9-16.9) g/dL Hct 25.5 L (37.5-50.1) % Plt Count 164 (140-400) K/mcL Neutrophils # 2.8 (1.6-8.9) K/mcL BMP 11/20/17 05:00 Sodium 143 Potassium 3.3 L Chloride 117 H Carbon Dioxide 18 L BUN 32 H Creatinine 2.12 H Glucose 97 Calcium 9.1 - Attending Attestation I examined this patient and my medical decision-making was reviewed with the Resident Physician Dr. Marquez. I agree with the documented findings, disposition and treatment plan as described except to the extent set forth below. <Lolis Mendez - Last Filed: 11/20/17 16:13> (6) CVA (cerebral vascular accident) Qualifiers: CVA mechanism: embolism Precerebral and cerebral artery: middle cerebral artery Laterality of affected vessel: right Qualified Code(s): I63.411 - Cerebral infarction due to embolism of right middle cerebral artery (7) Hypertension Qualifiers: Hypertension type: essential hypertension Qualified Code(s): I10 - Essential (primary) hypertension
[2017-11-21] MEDS: Piperacillin/Tazobactam 3.375 GM in 0.9 % Sodium Chloride Mini Bag 100 ML IVPB SCH ×3 (00:26→17:27)
[2017-11-21] MEDS: Ipratropium/Albuterol Neb 3 ML IH SCH ×6 (03:49→23:11)
[2017-11-21] MEDS: *HR* Heparin 5,000 UNIT/ML VIAL SQ SCH ×2 (05:27→17:26)
[2017-11-21] MEDS: Pantoprazole 40 MG VIAL IVP SCH ×2 (05:27→17:26)
[2017-11-21 05:34] LABS: Hematocrit 28.1 % (37.5-50.1); Hemoglobin 9.4 g/dL (12.9-16.9); Mean Corpuscular HGB Conc 33.5 g/dL (31.6-35.5); Mean Corpuscular Hemoglobin 29.2 pg (28.0-33.3); Mean Corpuscular Volume 87.3 fL (83.0-100.0); Mean Platelet Volume 8.7 fL (9.4-12.4); Platelet Count 193 K/mcL (140-400); Red Blood Count 3.22 M/mcL (4.19-5.50); Red Cell Distribution Width 13.6 % (11.5-14.5)
[2017-11-21 05:55] LABS: Potassium 3.5 mEq/L (3.5-5.1)
[2017-11-21 06:04] LABS: Eosinophils # 0.3 K/mcL (0.0-0.6); Lymphocytes # 0.2 K/mcL (0.6-4.6); Monocytes # 0.1 K/mcL (0.0-1.3); Neutrophils # 3.8 K/mcL (1.6-8.9); Platelet Estimate Normal (Normal)
[2017-11-21] MEDS: Aspirin 81 MG TAB.CHEW PO SCH (08:35)
[2017-11-21] MEDS: amLODIPine 5 MG TABLET PO SCH (08:35)
[2017-11-21] MEDS: Vancomycin Oral Soln 125 MG/2.5 ML UDC PO SCH ×4 (08:36→21:46)
--- NOTE | 2017-11-21 12:21 | Infectious Disease Progress No ---
Date of Encounter: 11/21/17 Time of Encounter: 12:21 - Assessment and Plan (1) Severe sepsis Current Visit: Yes Status: Acute The patient had three SIRS criteria on admission with HAYDEN. Likely secondary to aspiration pneumonia and C. diff. Improved. He was afebrile overnight. Tachycardia improved. HAYDEN trending down. Blood cultures drawn 11/18/17 are NGTD x 2 sets. (2) Aspiration pneumonia of both lower lobes due to regurgitated food Current Visit: Yes Status: Acute Location: Bilateral lower lobes. Likely secondary to dysphagia from recent CVA. Causative organism H. influenzae per sputum culture obtained at the [facility]. Speech therapy evaluation noted. Patient tolerated nectar-thick liquids and pureed textures. Repeat sputum culture if able. Aspiration precautions at all times. Continue Zosyn 3.375 grams IV Q8H. Duration of treatment depends on the clinical picture. Monitor renal function and dose-adjust antibiotics. (3) C. difficile diarrhea Current Visit: Yes Status: Acute Severe, initial episode. Currently has rectal tube. Continue Vancomycin 125mg PO QID. Duration of treatment depends on the clinical picture. He will require additional antibiotics for the aspiration pneumonia, so we may need to prolong the course of C. diff treatment past the typical 14 day duration. Continue C. diff precautions per protocol. (4) Acute kidney injury superimposed on chronic kidney disease Current Visit: Yes Status: Acute Likely secondary to sepsis. Improved. Continue to trend. Dose-adjust antibiotics. Avoid nephrotoxins as able. 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 GI consult noted. Status post EGD that showed esophagitis, but no other abnormality. (7) Left hemiplegia Current Visit: Yes Status: Acute Secondary to CVA. Frequent position changes/passive ROM per nursing protocol. (8) Dysphagia Current Visit: Yes Status: Acute Likely secondary to recent CVA. SYSTEMS ENG evaluation noted. Qualifiers: Qualified Code(s): R13.10 - Dysphagia, unspecified - Subjective Interval history: Patient seen and examined. No acute events noted overnight. Patient denies fevers, chills, or rigors. Denies chest pain, shortness of breath, or cough. Denies nausea, vomiting, or abdominal pain. Byrd catheter and rectal tube remain patent. Per patient, appetite okay. States he feels tired, but has no other complaints. Per nursing, going to remove byrd and rectal tube today and stools are more formed. Infect Dis PN-Objective Data - Labs CBC & Chem 7: 11/22/17 03:47 11/22/17 03:47 Labs: Laboratory Results - last 24 hr 11/20/17 11/20/17 11/21/17 04:40 20:23 00:23 WBC RBC Hgb Hct MCV MCH MCHC RDW Plt Count MPV Seg Neutrophils % Lymphocytes % Monocytes % Eosinophils % Metamyelocytes % Myelocytes % Promyelocytes % Neutrophils # Lymphocytes # Monocytes # Eosinophils # Platelet Estimate Sodium Potassium Chloride Carbon Dioxide BUN Creatinine Est GFR ( Amer) Est GFR (Non-Af Amer) BUN/Creatinine Ratio Glucose POC Glucose 99 137 H 123 H Calculated Osmolality Calcium 11/21/17 11/21/17 05:13 05:13 WBC 4.6 RBC 3.22 L Hgb 9.4 L Hct 28.1 L MCV 87.3 MCH 29.2 MCHC 33.5 RDW 13.6 Plt Count 193 MPV 8.7 L Seg Neutrophils % 82.0 Lymphocytes % 4.0 Monocytes % 2.0 Eosinophils % 6.0 Metamyelocytes % 2.0 H Myelocytes % 2.0 H Promyelocytes % 2.0 H Neutrophils # 3.8 Lymphocytes # 0.2 L Monocytes # 0.1 Eosinophils # 0.3 Platelet Estimate Normal Sodium 143 Potassium 3.5 Chloride 117 H Carbon Dioxide 19 L BUN 29 H Creatinine 1.99 H Est GFR ( Amer) 39 L Est GFR (Non-Af Amer) 32 L BUN/Creatinine Ratio 15 Glucose 110 H POC Glucose Calculated Osmolality 302 H Calcium 9.0 Cultures: Cultures 11/18/17 20:03 Urine Culture - Final Urine,Clean Catch No growth. 11/18/17 21:20 Blood Culture - Preliminary Peripheral Venipuncture Culture is incubating and being continuously monitored for growth. Final report to follow. 11/18/17 21:20 Blood Culture - Preliminary Peripheral Venipuncture Culture is incubating and being continuously monitored for growth. Final report to follow. Serology 11/19/17 11/18/17 Range/Units 05:45 20:03 Urine Color Yellow (Yellow) Urine Clarity Cloudy A (Clear) Urine pH 5.5 (5.0-8.0) pH Units Ur Specific [place] 1.017 (1.010-1.025) Urine Protein 100 H (Neg-Trace) mg/dL Urine Glucose (UA) Normal (Normal) mg/dL Urine Ketones Negative (Negative) mg/dL Urine Blood Large H (Negative) Urine Nitrite Negative (Negative) Urine Bilirubin Negative (Negative) Urine Urobilinogen Normal (Normal) mg/dL Ur Leukocyte Esterase Negative (Negative) Stl C. diff Tox B Gene Positive A (Negative) Exam - Constitutional Vitals: Temp Pulse Resp BP Pulse Ox 98.2 F 75 18 143/72 97 11/21/17 11:34 11/21/17 10:00 11/21/17 11:30 11/21/17 10:00 11/21/17 11:30 General appearance: average body habitus, cooperative, no acute distress - Head Head exam: Present: atraumatic, normal inspection, normocephalic - Eye Eye exam: Present: EOMI, normal appearance, PERRL Pupils: Present: normal accommodation - ENT ENT exam: Present: mucous membranes dry Additional comments: Poor dentition noted. - Neck Neck exam: Present: normal inspection - Respiratory Respiratory exam: Present: CTAB, rales (right base). Absent: respiratory distress, rhonchi, wheezes - Cardiovascular Cardiovascular exam: Present: RRR, +S1, +S2 - GI/Abdominal GI/Abdominal exam: Present: normal bowel sounds, soft. Absent: distended, tenderness Additional comments: Byrd catheter noted to be draining clear yellow urine. Rectal tube with small amount of liquid brown stool. - Extremities Exam Extremities exam: Absent: joint swelling, pedal edema, tenderness - Neurological Exam Neurological exam: Present: alert. Absent: oriented X3 (Oriented to person and time only.), no focal deficits (Paralysis noted to the LUE and LLE) - Psychiatric Psychiatric exam: Present: normal affect, normal mood - Skin Skin exam: Present: dry, intact, normal color, warm Consult Discharge Plan - Plan [facility]errals: [facility]Primary Care Provider] - - Attending Attestation I examined this patient and my medical decision-making was reviewed with Xiomara Grande CNP. I agree with the documented findings, disposition and treatment plan as described except to the extent set forth below.
--- NOTE | 2017-11-21 13:38 | Internal Med Progress Note ---
<Lolis Mendez - Last Filed: 11/21/17 13:48> Hospitalist Progress Note - Encounter Date of Encounter: 11/21/17 Time of Encounter: 13:36 - Subjective Interval History: Patient is an 82 yo M with history of cough and persistent left sided weakness s /p stroke on 10/14/17 who presented to the ED on 11/18/17 from [facility] for high fevers and suspected pneumonia. The patient developed high fever and was suspected to have developed pneumonia. CXR and then a CTA abdomen/pelvis demonstrated bilateral lower lobe infiltrate suspicious for aspiration pneumonia without other significant abdominal findings. He was initially started on Vancomycin and Zosyn, however he apparently was not improving thus he was switched to Meropenem, Vancomycin, and Levaquin and was transferred to [facility] for further workup. CT chest here shows likely aspiration pneumonia involving the bilateral lower lobes with small reactive parapneumonic effusions , additional aspiration-related sequela include basal predominant airway inflammation and tracheobronchial secretions, and esophageal features suggesting dysmotility and reflux. Patient does not complain of any pain today, still complains of cough. Much more alert and participates well with exam. - Exam Vitals: Temp Pulse Resp BP Pulse Ox 98.2 F 75 18 143/72 97 11/21/17 11:34 11/21/17 10:00 11/21/17 11:30 11/21/17 10:00 11/21/17 11:30 Exam: GEN: Ill appearing male breathing on room air, A&Ox3, more alert today, able to answer questions appropriately and participate in exam HEENT: atraumatic, no cervical lymphadenopathy, right sided 2x3cm superficial fatty lesion overlying right SCM, likely lipoma present CV: RRR, no murmurs, no BL LE pitting edema, no JVD RESP: mild end expiratory wheezes, no rales, no rhonchi, no clubbing ABD: BSx4, no organomegaly, nontender to palpation : Byrd present, no gross blood present, rectal tube draining brown, liquid stool VASC: LUE edematous, likely dependent, dorsalis pedis and radial pulses 2/4 - Assessment and Plan (1) Hospital-acquired pneumonia Current Visit: Yes Status: Acute Assessment and Plan: - Likely aspirational source due to impaired swallowing, other possible causes include hospital acquired and community acquired causes - Patient is on room air, vitals are stable today, no leukocytosis - [facility], blood cultures drawn have no growth to date. Sputum cultures positive for H. flu - Patient still on Zosyn for coverage. Deescalate pending growth of blood cultures. - Order in to move patient to 2A, 2N or 2NE. - Continue IV protonix per GI recommendations. (2) Clostridium difficile colitis Current Visit: Yes Status: Acute Assessment and Plan: - Likely secondary to antibiotic usage, stool PCR was positive for C. diff - Patient is on day 2 of PO vancomycin, stool is bristol 6, per ID recommendations continue PO vancomycin for 14 days total - Continue contact precautions - Remove rectal tube today to monitor stool production (3) Esophageal dysmotility Current Visit: Yes Status: Ruled-out Assessment and Plan: - Continues on pureed diet and speech therapy (4) Hypokalemia Current Visit: Yes Status: Acute Assessment and Plan: K is up to 3.5 from 3.3 Continue to monitor with BMPs (5) Acute kidney injury superimposed on chronic kidney disease Current Visit: Yes Status: Acute Assessment and Plan: - GFR and Cr are improving, Cr is back to baseline. - Continue to monitor with BMPs. Hold nephrotoxic medications - Will d/c byrd today and monitor urine output (6) CVA (cerebral vascular accident) Current Visit: No Status: Chronic Assessment and Plan: - Persistent left sided hemiparesis - LUE edematous, likely dependent swelling but will obtain LUE doppler US to ensure there is no DVT given immobility (7) Hypertension Current Visit: Yes Status: Acute Assessment and Plan: Continues on norvasc 10mg (8) DVT prophylaxis Current Visit: Yes Status: Acute Assessment and Plan: - Continue on heparin - Time Spent with Patient Total time spent is greater than 50% in coordination of care (as documented) at patient's floor/unit and/or counseling patient: Internal Medicine: Result - Labs CBC & Chem 7: 11/21/17 05:13 11/21/17 05:13 Labs: Short CBC 11/21/17 Range/Units 05:13 WBC 4.6 (4.3-11.1) K/mcL Hgb 9.4 L (12.9-16.9) g/dL Hct 28.1 L (37.5-50.1) % Plt Count 193 (140-400) K/mcL Neutrophils # 3.8 (1.6-8.9) K/mcL [facility] 11/21/17 05:13 Sodium 143 Potassium 3.5 Chloride 117 H Carbon Dioxide 19 L BUN 29 H Creatinine 1.99 H Glucose 110 H Calcium 9.0 Consult Discharge Plan - Plan Referrals: [facility] [Primary Care Provider] - <Lorena Kateul Lalo - Last Filed: 11/21/17 19:01> Hospitalist Progress Note - Encounter Date of Encounter: 11/21/17 - Exam Vitals: Temp Pulse Resp BP Pulse Ox 98.0 F 82 16 133/69 97 11/21/17 16:23 11/21/17 16:08 11/21/17 16:08 11/21/17 16:08 11/21/17 16:02 - Time Spent with Patient Total time spent is greater than 50% in coordination of care (as documented) at patient's floor/unit and/or counseling patient: Internal Medicine: Result - Labs CBC & Chem 7: 11/21/17 05:13 11/21/17 05:13 Labs: Short CBC 11/21/17 Range/Units 05:13 WBC 4.6 (4.3-11.1) K/mcL Hgb 9.4 L (12.9-16.9) g/dL Hct 28.1 L (37.5-50.1) % Plt Count 193 (140-400) K/mcL Neutrophils # 3.8 (1.6-8.9) K/mcL [facility] 11/21/17 05:13 Sodium 143 Potassium 3.5 Chloride 117 H Carbon Dioxide 19 L BUN 29 H Creatinine 1.99 H Glucose 110 H Calcium 9.0 - Attending Attestation I examined this patient and my medical decision-making was reviewed with the Resident Physician Dr. Marquez. I agree with the documented findings, disposition and treatment plan as described except to the extent set forth below. <Lolis Mendez M - Last Filed: 11/21/17 13:48> (6) CVA (cerebral vascular accident) Qualifiers: CVA mechanism: embolism Precerebral and cerebral artery: middle cerebral artery Laterality of affected vessel: right Qualified Code(s): I63.411 - Cerebral infarction due to embolism of right middle cerebral artery (7) Hypertension Qualifiers: Hypertension type: essential hypertension Qualified Code(s): I10 - Essential (primary) hypertension
[2017-11-22] MEDS: Piperacillin/Tazobactam 3.375 GM in 0.9 % Sodium Chloride Mini Bag 100 ML IVPB SCH ×3 (01:20→16:46)
[2017-11-22] MEDS: Ipratropium/Albuterol Neb 3 ML IH SCH ×3 (04:16→11:39)
[2017-11-22 04:51] LABS: Basophils % 0.5 %; Eosinophils # 0.1 K/mcL (0.0-0.6); Eosinophils % 2.5 %; Hematocrit 25.1 % (37.5-50.1); Hemoglobin 8.3 g/dL (12.9-16.9); Immature Granulocytes % 6.9 % (0-4); Lymphocytes # 0.6 K/mcL (0.6-4.6); Lymphocytes % 13.9 %; Mean Corpuscular HGB Conc 33.1 g/dL (31.6-35.5); Mean Corpuscular Hemoglobin 27.9 pg (28.0-33.3); Mean Corpuscular Volume 84.2 fL (83.0-100.0); Mean Platelet Volume 9.1 fL (9.4-12.4); Monocytes # 0.3 K/mcL (0.0-1.3); Monocytes % 7.6 %; Platelet Count 191 K/mcL (140-400); Red Blood Count 2.98 M/mcL (4.19-5.50); Red Cell Distribution Width 13.8 % (11.5-14.5); Segmented Neutrophils % 68.6 %
[2017-11-22 05:06] LABS: Calcium 8.8 mg/dL (8.6-10.3); Potassium 3.4 mEq/L (3.5-5.1)
[2017-11-22 05:20] LABS: Platelet Estimate Normal (Normal); Toxic Granulation Present (Not Present)
[2017-11-22] MEDS: *HR* Heparin 5,000 UNIT/ML VIAL SQ SCH ×2 (05:35→16:46)
[2017-11-22] MEDS: Pantoprazole 40 MG VIAL IVP SCH ×2 (06:35→16:47)
[2017-11-22] MEDS: amLODIPine 5 MG TABLET PO SCH (09:17)
[2017-11-22] MEDS: Aspirin 81 MG TAB.CHEW PO SCH (09:17)
[2017-11-22] MEDS: Vancomycin Oral Soln 125 MG/2.5 ML UDC PO SCH ×4 (09:18→21:27)
[2017-11-22] MEDS ORDERED: Potassium Chloride Elixir 20 MEQ/15 ML UDC PO ONE (09:19)
--- NOTE | 2017-11-22 09:34 | Internal Med Progress Note ---
<Lolis Mendez - Last Filed: 11/22/17 13:37> Hospitalist Progress Note - Encounter Date of Encounter: 11/22/17 Time of Encounter: 09:32 - Subjective Interval History: Patient is an 82 yo M with history of cough and persistent left sided weakness s /p stroke on 10/14/17 who presented to the ED on 11/18/17 from [facility] for high fevers and suspected pneumonia. The patient developed high fever and was suspected to have developed pneumonia. CXR and then a CTA abdomen/pelvis demonstrated bilateral lower lobe infiltrate suspicious for aspiration pneumonia without other significant abdominal findings. He was initially started on Vancomycin and Zosyn, however he apparently was not improving thus he was switched to Meropenem, Vancomycin, and Levaquin and was transferred to [facility] for further workup. CT chest here shows likely aspiration pneumonia involving the bilateral lower lobes with small reactive parapneumonic effusions , additional aspiration-related sequela include basal predominant airway inflammation and tracheobronchial secretions, and esophageal features suggesting dysmotility and reflux. Patient is confused today as compared to yesterday. Was A&Ox1, long pauses in response. Was unsure of current state of health or location. Per nurse, patient did not stool overnight. - Exam Vitals: Temp Pulse Resp BP Pulse Ox 97.4 F L 79 16 176/102 96 11/22/17 05:11 11/22/17 07:53 11/22/17 07:53 11/22/17 07:53 11/22/17 07:53 Exam: GEN: Ill appearing male breathing on room air, A&O to person and time but not place, more somnolent and requires frequent repeated questions and redirection HEENT: atraumatic, no cervical lymphadenopathy, right sided 2x3cm superficial fatty lesion overlying right SCM, likely lipoma present CV: RRR, no murmurs, no BL LE pitting edema, no JVD RESP: mild end expiratory wheezes, no rales, no rhonchi, no clubbing ABD: BSx4, no organomegaly, nontender to palpation : No urinary or rectal tube VASC: LUE edematous, likely dependent, dorsalis pedis and radial pulses 2/4 - Assessment and Plan (1) Hospital-acquired pneumonia Current Visit: Yes Status: Acute Assessment and Plan: - Likely aspirational source due to impaired swallowing, other possible causes include hospital acquired and community acquired causes - Patient step-down to 2NE from ICU. Is on room air, vitals are stable today, no leukocytosis but is confused today, unsure of his baseline - Per [facility] and BCs taken at [facility], no growth to date. Patient is seated upright in bed to prevent aspiration - Patient still on Zosyn for coverage - Deescalate pending growth of blood cultures - Continue IV protonix per GI recommendations - Upon D/C with Azithromycin for 5 days or with antibiotic recommended by ID (2) Clostridium difficile colitis Current Visit: Yes Status: Acute Assessment and Plan: - Likely secondary to antibiotic usage, stool PCR was positive for C.Diff - Patient is on day 3 of PO vancomycin, did not stool overnight, per ID recommendations continue PO vancomycin for 14 days total, possibly longer course. Continue contact precautions. (3) Dementia Current Visit: Yes Status: Suspected Assessment and Plan: Patient today is not oriented to place or time. He requires frequent redirection and repeated questions. Likely this is a long standing change from his recent stroke but unsure of his baseline and there is no family to discuss with. Likely fluctuates in alertness and orientation but will continue to monitor for changes (4) Esophageal dysmotility Current Visit: Yes Status: Ruled-out Assessment and Plan: - Continuing with liquid pureed diet per speech recommendations due to high aspiration risk (5) Hypokalemia Current Visit: Yes Status: Acute Assessment and Plan: - K is down to 3.4 today, 20mEq PO KCl given, will continue to monitor with AM labs (6) Acute kidney injury superimposed on chronic kidney disease Current Visit: Yes Status: Acute Assessment and Plan: GFR and Cr continue to improve, today Cr is 1.96 Continue to monitor with BMPs Hold nephrotoxic medications 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 - Likely due to dependent edema secondary to impaired mobility of left side - Doppler U/S of left upper extremity negative for DVT - Elevate arm on pillow to decrease dependent edema. (8) Hypertension Current Visit: Yes Status: Chronic Assessment and Plan: Continue home medications, prn Hydralazine for SBP > 160 (9) DVT prophylaxis Current Visit: Yes Status: Acute Assessment and Plan: - Continues on heparin 5000 SQ every 8 hours - Time Spent with Patient Total time spent is greater than 50% in coordination of care (as documented) at patient's floor/unit and/or counseling patient: Internal Medicine: Result - Labs CBC & Chem 7: 11/22/17 03:47 11/22/17 03:47 Labs: Short CBC 11/22/17 Range/Units 03:47 WBC 4.3 (4.3-11.1) K/mcL Hgb 8.3 L (12.9-16.9) g/dL Hct 25.1 L (37.5-50.1) % Plt Count 191 (140-400) K/mcL Neutrophils # 3.0 (1.6-8.9) K/mcL BMP 11/22/17 03:47 Sodium 143 Potassium 3.4 L Chloride 118 H Carbon Dioxide 18 L BUN 28 H Creatinine 1.96 H Glucose 131 H Calcium 8.8 Consult Discharge Plan - Plan Referrals: [facility] [Primary Care Provider] - <Tyson Kate - Last Filed: 11/22/17 21:42> Hospitalist Progress Note - Encounter Date of Encounter: 11/22/17 - Exam Vitals: Temp Pulse Resp BP Pulse Ox 97.9 F 89 16 156/91 97 11/22/17 16:43 11/22/17 16:43 11/22/17 16:43 11/22/17 16:43 11/22/17 16:43 - Time Spent with Patient Total time spent is greater than 50% in coordination of care (as documented) at patient's floor/unit and/or counseling patient: Internal Medicine: Result - Labs CBC & Chem 7: 11/22/17 03:47 11/22/17 03:47 Labs: Short CBC 11/22/17 Range/Units 03:47 WBC 4.3 (4.3-11.1) K/mcL Hgb 8.3 L (12.9-16.9) g/dL Hct 25.1 L (37.5-50.1) % Plt Count 191 (140-400) K/mcL Neutrophils # 3.0 (1.6-8.9) K/mcL BMP 11/22/17 03:47 Sodium 143 Potassium 3.4 L Chloride 118 H Carbon Dioxide 18 L BUN 28 H Creatinine 1.96 H Glucose 131 H Calcium 8.8 - Attending Attestation I examined this patient and my medical decision-making was reviewed with the Resident Physician Dr. Marquez. I agree with the documented findings, disposition and treatment plan as described except to the extent set forth below. <Lolis Mendez - Last Filed: 11/22/17 13:37> (3) Dementia Qualifiers: Dementia type: unspecified type (7) CVA (cerebral vascular accident) Qualifiers: CVA mechanism: embolism Precerebral and cerebral artery: middle cerebral artery Laterality of affected vessel: right Qualified Code(s): I63.411 - Cerebral infarction due to embolism of right middle cerebral artery (8) Hypertension Qualifiers: Hypertension type: essential hypertension Qualified Code(s): I10 - Essential (primary) hypertension
--- NOTE | 2017-11-22 11:43 | Infectious Disease Progress No ---
Date of Encounter: 11/22/17 Time of Encounter: 11:41 - Assessment and Plan (1) Severe sepsis Current Visit: Yes Status: Acute The patient had three SIRS criteria on admission with HAYDEN. Likely secondary to aspiration pneumonia and C. diff. Improved. Afebrile. Tachycardia improved. HAYDEN trending down. Blood cultures drawn 11/18/17 are NGTD x 2 sets. (2) Aspiration pneumonia of both lower lobes due to regurgitated food Current Visit: Yes Status: Acute Location: Bilateral lower lobes. Likely secondary to dysphagia from recent CVA. Causative organism H. influenzae per sputum culture obtained at the [facility]. Speech therapy evaluation noted. Patient tolerated nectar-thick liquids and pureed textures. Repeat sputum culture if able. Aspiration precautions at all times. Continue Zosyn 3.375 grams IV Q8H. (day 4) Duration of treatment depends on the clinical picture, but likely a total of 14 days including what the patient received at the [facility]. Can switch to PO Augmentin 875mg BID when ready for discharge to complete course of treatment. Treat through 11/29/17, then discontinue. Monitor renal function and dose-adjust antibiotics. (3) C. difficile diarrhea Current Visit: Yes Status: Acute Severe, initial episode. Currently has rectal tube. Continue Vancomycin 125mg PO QID. (day 4) Duration of treatment depends on the clinical picture. He will require additional antibiotics for the aspiration pneumonia, so we may need to prolong the course of C. diff treatment past the typical 14 day duration. Will plan to treat through 12/02/17. Continue C. diff precautions per protocol. (4) Acute kidney injury superimposed on chronic kidney disease Current Visit: Yes Status: Acute Likely secondary to sepsis. Improved. Continue to trend. Dose-adjust antibiotics. Avoid nephrotoxins as able. (5) CVA (cerebral vascular accident) Current Visit: No Status: Chronic Qualifiers: CVA mechanism: embolism Precerebral and cerebral artery: middle cerebral artery Laterality of affected vessel: right Qualified Code(s): I63.411 - Cerebral infarction due to embolism of right middle cerebral artery (6) Esophageal dysmotility Current Visit: Yes Status: Ruled-out GI consulted. Status post EGD 11/20/17. Negative except for esophagitis. (7) Left hemiplegia Current Visit: Yes Status: Acute Secondary to CVA. Frequent position changes/passive ROM per nursing protocol. (8) Dysphagia Current Visit: Yes Status: Acute Likely secondary to recent CVA. MEDICAL AFFAIRS MANAGER evaluation noted. Qualifiers: Dysphagia type: unspecified Qualified Code(s): R13.10 - Dysphagia, unspecified - Subjective Interval history: Patient seen and examined with speech therapist at the bedside. No acute events noted overnight. Patient states his morning was going well until just a few minutes before my exam. Patient denies fevers, chills, or rigors. Denies chest pain, shortness of breath, or cough. Denies nausea, vomiting, or abdominal pain. Per patient he's not hungry this morning. No diarrhea per nursing. Infect Dis PN-Objective Data - Labs CBC & Chem 7: 11/22/17 03:47 11/22/17 03:47 Labs: Laboratory Results - last 24 hr 11/22/17 11/22/17 03:47 03:47 WBC 4.3 RBC 2.98 L Hgb 8.3 L Hct 25.1 L MCV 84.2 MCH 27.9 L MCHC 33.1 RDW 13.8 Plt Count 191 MPV 9.1 L Immature Gran % 6.9 H Seg Neutrophils % 68.6 Lymphocytes % 13.9 Monocytes % 7.6 Eosinophils % 2.5 Basophils % 0.5 Neutrophils # 3.0 Lymphocytes # 0.6 Monocytes # 0.3 Eosinophils # 0.1 Basophils # 0.0 Toxic Granulation Present A Platelet Estimate Normal Sodium 143 Potassium 3.4 L Chloride 118 H Carbon Dioxide 18 L BUN 28 H Creatinine 1.96 H Est GFR ( Amer) 40 L Est GFR (Non-Af Amer) 33 L BUN/Creatinine Ratio 14 Glucose 131 H Calculated Osmolality 303 H Calcium 8.8 Cultures: Cultures 11/18/17 20:03 Urine Culture - Final Urine,Clean Catch No growth. 11/18/17 21:20 Blood Culture - Preliminary Peripheral Venipuncture Culture is incubating and being continuously monitored for growth. Final report to follow. 11/18/17 21:20 Blood Culture - Preliminary Peripheral Venipuncture Culture is incubating and being continuously monitored for growth. Final report to follow. Serology 11/19/17 11/18/17 Range/Units 05:45 20:03 Urine Color Yellow (Yellow) Urine Clarity Cloudy A (Clear) Urine pH 5.5 (5.0-8.0) pH Units Ur Specific [place] 1.017 (1.010-1.025) Urine Protein 100 H (Neg-Trace) mg/dL Urine Glucose (UA) Normal (Normal) mg/dL Urine Ketones Negative (Negative) mg/dL Urine Blood Large H (Negative) Urine Nitrite Negative (Negative) Urine Bilirubin Negative (Negative) Urine Urobilinogen Normal (Normal) mg/dL Ur Leukocyte Esterase Negative (Negative) Stl C. diff Tox B Gene Positive A (Negative) Exam - Constitutional Vitals: Temp Pulse Resp BP Pulse Ox 97.4 F L 82 16 145/87 97 11/22/17 05:11 11/22/17 11:22 11/22/17 11:22 11/22/17 11:22 11/22/17 11:22 General appearance: average body habitus, cooperative, no acute distress - Head Head exam: Present: atraumatic, normal inspection, normocephalic - Eye Eye exam: Present: EOMI, normal appearance, PERRL Pupils: Present: normal accommodation - ENT ENT exam: Present: mucous membranes moist Additional comments: Very poor dentition noted. - Neck Neck exam: Present: normal inspection - Respiratory Respiratory exam: Present: CTAB. Absent: rales, respiratory distress, rhonchi, wheezes - Cardiovascular Cardiovascular exam: Present: RRR, +S1, +S2 - GI/Abdominal GI/Abdominal exam: Present: normal bowel sounds, soft. Absent: distended, tenderness - Extremities Exam Extremities exam: Present: pedal edema (1+ LLE). Absent: joint swelling, tenderness Additional comments: LUE edematous, but without erythema, warmth, or pain. - Neurological Exam Neurological exam: Present: alert. Absent: oriented X3 (Oriented to person only.), no focal deficits (Paralysis noted of the LUE and LLE.) - Psychiatric Psychiatric exam: Present: agitated - Skin Skin exam: Present: dry, intact, normal color, warm Consult Discharge Plan - Plan Referrals: [facility] [Primary Care Provider] - - Attending Attestation I examined this patient and my medical decision-making was reviewed with the tori loyd CNP. I agree with the documented findings, disposition and treatment plan as described except to the extent set forth below.
[2017-11-23] MEDS: Piperacillin/Tazobactam 3.375 GM in 0.9 % Sodium Chloride Mini Bag 100 ML IVPB SCH ×2 (00:04→07:53)
[2017-11-23] MEDS: Pantoprazole 40 MG VIAL IVP SCH ×2 (05:10→18:40)
[2017-11-23] MEDS: *HR* Heparin 5,000 UNIT/ML VIAL SQ SCH ×2 (05:10→18:40)
[2017-11-23 05:19] LABS: Basophils # 0.1 K/mcL (0.0-0.2); Basophils % 0.8 %; Eosinophils # 0.1 K/mcL (0.0-0.6); Eosinophils % 1.6 %; Hematocrit 25.8 % (37.5-50.1); Hemoglobin 8.5 g/dL (12.9-16.9); Immature Granulocytes % 4.7 % (0-4); Lymphocytes # 0.9 K/mcL (0.6-4.6); Lymphocytes % 13.6 %; Mean Corpuscular HGB Conc 32.9 g/dL (31.6-35.5); Mean Corpuscular Volume 84.9 fL (83.0-100.0); Mean Platelet Volume 9.1 fL (9.4-12.4); Monocytes # 0.5 K/mcL (0.0-1.3); Monocytes % 8.2 %; Neutrophils # 4.5 K/mcL (1.6-8.9); Platelet Count 237 K/mcL (140-400); Red Blood Count 3.04 M/mcL (4.19-5.50); Segmented Neutrophils % 71.1 %
[2017-11-23 07:13] LABS: Calcium 9.2 mg/dL (8.6-10.3); Potassium 3.7 mEq/L (3.5-5.1)
[2017-11-23] MEDS: amLODIPine 5 MG TABLET PO SCH (07:52)
[2017-11-23] MEDS: Aspirin 81 MG TAB.CHEW PO SCH (07:52)
[2017-11-23] MEDS: Vancomycin Oral Soln 125 MG/2.5 ML UDC PO SCH ×4 (07:52→20:20)
[2017-11-23] MEDS: 0.45 % Sodium Chloride w/KCl 20 MEQ/1,000 ML MLS IVC SCH (11:11)
--- NOTE | 2017-11-23 13:04 | Internal Med Progress Note ---
<Lolis Mendez - Last Filed: 11/23/17 16:09> Hospitalist Progress Note - Encounter Date of Encounter: 11/23/17 Time of Encounter: 09:39 - Subjective Interval History: Patient is an 82 yo M with history of cough and persistent left sided weakness s /p stroke on 10/14/17 who presented to the ED on 11/18/17 from [facility] for high fevers and suspected pneumonia. The patient developed high fever and was suspected to have developed pneumonia. CXR and then a CTA abdomen/pelvis demonstrated bilateral lower lobe infiltrate suspicious for aspiration pneumonia without other significant abdominal findings. He was initially started on Vancomycin and Zosyn, however he apparently was not improving thus he was switched to Meropenem, Vancomycin, and Levaquin and was transferred to [facility] for further workup. CT chest here shows likely aspiration pneumonia involving the bilateral lower lobes with small reactive parapneumonic effusions , additional aspiration-related sequela include basal predominant airway inflammation and tracheobronchial secretions, and esophageal features suggesting dysmotility and reflux. Today the patient is slightly more alert today but still difficult to understand. He knows his name and location but does not know the year. Per nurse patient stooled overnight, did not appear to be c-diff consistency, partially formed. Patient tolerated food well. - Exam Vitals: Temp Pulse Resp BP Pulse Ox 97.8 F 102 19 155/86 93 11/23/17 11:21 11/23/17 11:21 11/23/17 11:21 11/23/17 11:21 11/23/17 11:21 Exam: GEN: Ill appearing male breathing on room air, A&O to person but not to place or time, difficult to understand with significant upper respiratory sounds when speaking HEENT: atraumatic, no cervical lymphadenopathy, right sided 2x3cm superficial fatty lesion overlying right SCM, likely lipoma present CV: tachycardic, regular rhythym, no murmurs, no BL LE pitting edema, no JVD RESP: mild end expiratory wheezes, no rales, no rhonchi, no clubbing ABD: BSx4, no organomegaly, nontender to palpation : No urinary or rectal tube VASC: LUE edematous, likely dependent, dorsalis pedis and radial pulses 2/4 - Assessment and Plan (1) Hospital-acquired pneumonia Current Visit: Yes Status: Acute Assessment and Plan: - Likely aspirational source due to impaired swallowing, other possible causes include hospital acquired and community acquired causes - Per ID recommendations, D/C Zosyn, switch to PO Augmentin 875 BID for 14 total days of treatment, on day 5 of Zosyn today. Will d/c Augmentin on 11/29. - Continue IV protonix per GI recommendations - Today the patient spiked a fever to 100.3F and may require transfer to [facility] prior to return to rehab - Keep head of bed elevated for aspiration risk (2) Clostridium difficile colitis Current Visit: Yes Status: Acute Assessment and Plan: - Patient is on day 5 of PO vancomycin, had partially formed stool overnight. - Per ID recommendations continue PO vancomycin for 14 days total, possibly longer course pending ID recommendation. - Continue contact precautions. (3) Hypokalemia Current Visit: Yes Status: Acute Assessment and Plan: - K is at 3.7 today, given his hypernatremia and hypochloremia will give 0.45 NS with 20mEq KCl at 75mL/hour - Will recheck BMP in the am - Likely discharge in the morning (4) Hypertension Current Visit: Yes Status: Chronic Assessment and Plan: - BP was elevated this morning at 191/94 - Continue home medications, switch prn - Hydralazine to prn Labetalol for SBP > 160 or DBP > 110. - Continue Amlodipine at 10 mg PO daily, add on Lisinopril 10 mg PO daily - Monitor blood pressures and if stable, will likely be discharged back to [facility] tomorrow (5) Dementia Current Visit: Yes Status: Suspected Assessment and Plan: Delirium vs dementia - Likely secondary to change in environment with stay in hospital. - Patient has baseline dementia, but is acutely more confused than 2-3 days ago. - Open windows, encourage family visitation, clock in room, supportive measures and will continue to monitor (6) Acute kidney injury superimposed on chronic kidney disease Current Visit: Yes Status: Acute Assessment and Plan: - GFR and Cr are improving, Cr is back to baseline. At 1.89 today. - Will give 0.45 NS with 20 mEq KCl at 75mL/hour - Continue to monitor with BMPs. Hold nephrotoxic medications. 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, continue with PT/OT for dependent edema - Keep patient on aspirin - Speech recommends pureed diet, PT/OT consulted and recommend ECF/SNF placement upon discharge; [facility] has bed hold for patient to return upon discharge (8) DVT prophylaxis Current Visit: Yes Status: Acute Assessment and Plan: - Continues on Heparin 5000mg SQ q 8 hours - Time Spent with Patient Total time spent is greater than 50% in coordination of care (as documented) at patient's floor/unit and/or counseling patient: Internal Medicine: Result - Labs CBC & Chem 7: 11/23/17 03:47 11/23/17 03:47 Labs: Short CBC 11/23/17 Range/Units 03:47 WBC 6.4 (4.3-11.1) K/mcL Hgb 8.5 L (12.9-16.9) g/dL Hct 25.8 L (37.5-50.1) % Plt Count 237 (140-400) K/mcL Neutrophils # 4.5 (1.6-8.9) K/mcL BMP 11/23/17 03:47 Sodium 146 H Potassium 3.7 Chloride 120 H Carbon Dioxide 19 L BUN 21 Creatinine 1.89 H Glucose 108 H Calcium 9.2 Consult Discharge Plan - Plan Referrals: [facility] [Primary Care Provider] - <Tyson Kate - Last Filed: 11/23/17 22:01> Hospitalist Progress Note - Encounter Date of Encounter: 11/23/17 - Exam Vitals: Temp Pulse Resp BP Pulse Ox 98.1 F 96 15 164/87 93 11/23/17 20:53 11/23/17 20:53 11/23/17 20:53 11/23/17 20:53 11/23/17 20:53 - Time Spent with Patient Total time spent is greater than 50% in coordination of care (as documented) at patient's floor/unit and/or counseling patient: Internal Medicine: Result - Labs CBC & Chem 7: 11/23/17 03:47 11/23/17 03:47 Labs: Short CBC 11/23/17 Range/Units 03:47 WBC 6.4 (4.3-11.1) K/mcL Hgb 8.5 L (12.9-16.9) g/dL Hct 25.8 L (37.5-50.1) % Plt Count 237 (140-400) K/mcL Neutrophils # 4.5 (1.6-8.9) K/mcL BMP 11/23/17 03:47 Sodium 146 H Potassium 3.7 Chloride 120 H Carbon Dioxide 19 L BUN 21 Creatinine 1.89 H Glucose 108 H Calcium 9.2 - Attending Attestation I examined this patient and my medical decision-making was reviewed with the Resident Physician Dr. Marquez. I agree with the documented findings, disposition and treatment plan as described except to the extent set forth below. <Lolis Mendez - Last Filed: 11/23/17 16:09> (4) Hypertension Qualifiers: Hypertension type: essential hypertension Qualified Code(s): I10 - Essential (primary) hypertension (5) Dementia Qualifiers: Dementia type: unspecified type (7) CVA (cerebral vascular accident) Qualifiers: CVA mechanism: embolism Precerebral and cerebral artery: middle cerebral artery Laterality of affected vessel: right Qualified Code(s): I63.411 - Cerebral infarction due to embolism of right middle cerebral artery
--- NOTE | 2017-11-23 14:44 | Infectious Disease Progress No ---
Date of Encounter: 11/23/17 Time of Encounter: 14:42 - Assessment and Plan (1) Severe sepsis Current Visit: Yes Status: Acute The patient had three SIRS criteria on admission with HAYDEN. Likely secondary to aspiration pneumonia and C. diff. Improved. Afebrile. Tachycardia improved. HAYDEN trending down. Blood cultures drawn 11/18/17 are NGTD x 2 sets. (2) Aspiration pneumonia of both lower lobes due to regurgitated food Current Visit: Yes Status: Acute Location: Bilateral lower lobes. Likely secondary to dysphagia from recent CVA. Causative organism H. influenzae per sputum culture obtained at the [facility]. Speech therapy evaluation noted. Patient tolerated nectar-thick liquids and pureed textures. Repeat sputum culture if able. Aspiration precautions at all times. Continue Zosyn 3.375 grams IV Q8H. (day 4) Duration of treatment depends on the clinical picture, but likely a total of 14 days including what the patient received at the [facility]. Can switch to PO Augmentin 875mg BID when ready for discharge to complete course of treatment. Treat through 11/29/17, then discontinue. Monitor renal function and dose-adjust antibiotics. (3) C. difficile diarrhea Current Visit: Yes Status: Acute Severe, initial episode. Currently has rectal tube. Continue Vancomycin 125mg PO QID. (day 4) Duration of treatment depends on the clinical picture. He will require additional antibiotics for the aspiration pneumonia, so we may need to prolong the course of C. diff treatment past the typical 14 day duration. Will plan to treat through 12/02/17. Continue C. diff precautions per protocol. (4) Acute kidney injury superimposed on chronic kidney disease Current Visit: Yes Status: Acute Likely secondary to sepsis. Improved. Continue to trend. Dose-adjust antibiotics. Avoid nephrotoxins as able. (5) CVA (cerebral vascular accident) Current Visit: No Status: Chronic Qualifiers: CVA mechanism: embolism Precerebral and cerebral artery: middle cerebral artery Laterality of affected vessel: right Qualified Code(s): I63.411 - Cerebral infarction due to embolism of right middle cerebral artery (6) Esophageal dysmotility Current Visit: Yes Status: Ruled-out GI consulted. Status post EGD 11/20/17. Negative except for esophagitis. (7) Left hemiplegia Current Visit: Yes Status: Acute Secondary to CVA. Frequent position changes/passive ROM per nursing protocol. (8) Dysphagia Current Visit: Yes Status: Acute Likely secondary to recent CVA. [employer] evaluation noted. Qualifiers: Dysphagia type: unspecified Qualified Code(s): R13.10 - Dysphagia, unspecified - Subjective Interval history: Patient seen and examined . He was eating his lunch. His awake alert oriented new that he had 3 daughters and the 2 of them where they are today. No diarrhea. Breathing much better. He still has some cough when I was interviewing him. Vital signs noted to, afebrile, MAXIMUM TEMPERATURE 98.4. Mildly tachycardic WBC 6.4 Creatinine mildly improved to 1.89 Infect Dis PN-Objective Data - Labs CBC & Chem 7: 11/23/17 03:47 11/23/17 03:47 Labs: Laboratory Results - last 24 hr 11/21/17 11/23/17 11/23/17 11:15 03:47 03:47 WBC 6.4 RBC 3.04 L Hgb 8.5 L Hct 25.8 L MCV 84.9 MCH 28.0 MCHC 32.9 RDW 14.0 Plt Count 237 MPV 9.1 L Immature Gran % 4.7 H Seg Neutrophils % 71.1 Lymphocytes % 13.6 Monocytes % 8.2 Eosinophils % 1.6 Basophils % 0.8 Neutrophils # 4.5 Lymphocytes # 0.9 Monocytes # 0.5 Eosinophils # 0.1 Basophils # 0.1 Sodium 146 H Potassium 3.7 Chloride 120 H Carbon Dioxide 19 L BUN 21 Creatinine 1.89 H Est GFR ( Amer) 42 L Est GFR (Non-Af Amer) 34 L BUN/Creatinine Ratio 11 Glucose 108 H POC Glucose 129 H Calculated Osmolality 306 H Calcium 9.2 Cultures: Cultures 11/18/17 20:03 Urine Culture - Final Urine,Clean Catch No growth. 11/18/17 21:20 Blood Culture - Preliminary Peripheral Venipuncture Culture is incubating and being continuously monitored for growth. Final report to follow. 11/18/17 21:20 Blood Culture - Preliminary Peripheral Venipuncture Culture is incubating and being continuously monitored for growth. Final report to follow. Serology 11/19/17 11/18/17 Range/Units 05:45 20:03 Urine Color Yellow (Yellow) Urine Clarity Cloudy A (Clear) Urine pH 5.5 (5.0-8.0) pH Units Ur Specific [place] 1.017 (1.010-1.025) Urine Protein 100 H (Neg-Trace) mg/dL Urine Glucose (UA) Normal (Normal) mg/dL Urine Ketones Negative (Negative) mg/dL Urine Blood Large H (Negative) Urine Nitrite Negative (Negative) Urine Bilirubin Negative (Negative) Urine Urobilinogen Normal (Normal) mg/dL Ur Leukocyte Esterase Negative (Negative) Stl C. diff Tox B Gene Positive A (Negative) Exam - Constitutional Vitals: Temp Pulse Resp BP Pulse Ox 97.8 F 102 19 175/100 93 11/23/17 11:21 11/23/17 11:21 11/23/17 11:21 11/23/17 13:58 11/23/17 11:21 General appearance: cooperative, no acute distress, no febrile - Respiratory Additional comments: Good air sounds bilaterally. Decreased breath sounds with some diffuse rhonchi at the bases bilaterally. - Cardiovascular Cardiovascular exam: Present: irregular rhythm, +S1, +S2 - GI/Abdominal GI/Abdominal exam: Present: normal bowel sounds, soft. Absent: tenderness Consult Discharge Plan - Plan [facility] Care Provider[facility] -
[2017-11-24] MEDS: 0.45 % Sodium Chloride w/KCl 20 MEQ/1,000 ML MLS IVC SCH (00:30)
[2017-11-24] MEDS: *HR* Labetalol 20 MG/4 ML SYRINGE IVP PRN ×2 (01:12→05:23)
[2017-11-24] MEDS: Pantoprazole 40 MG VIAL IVP SCH (05:13)
[2017-11-24] MEDS: *HR* Heparin 5,000 UNIT/ML VIAL SQ SCH (05:13)
[2017-11-24 05:20] LABS: Basophils % 0.5 %; Eosinophils # 0.1 K/mcL (0.0-0.6); Eosinophils % 1.9 %; Hematocrit 26.6 % (37.5-50.1); Hemoglobin 8.8 g/dL (12.9-16.9); Immature Granulocytes % 4.9 % (0-4); Lymphocytes # 1.2 K/mcL (0.6-4.6); Lymphocytes % 15.5 %; Mean Corpuscular HGB Conc 33.1 g/dL (31.6-35.5); Mean Corpuscular Hemoglobin 28.7 pg (28.0-33.3); Mean Corpuscular Volume 86.6 fL (83.0-100.0); Mean Platelet Volume 8.6 fL (9.4-12.4); Monocytes # 0.7 K/mcL (0.0-1.3); Monocytes % 9.8 %; Neutrophils # 5.1 K/mcL (1.6-8.9); Platelet Count 238 K/mcL (140-400); Red Blood Count 3.07 M/mcL (4.19-5.50); Red Cell Distribution Width 14.4 % (11.5-14.5); Segmented Neutrophils % 67.4 %
[2017-11-24 05:35] LABS: Calcium 9.2 mg/dL (8.6-10.3); Potassium 3.8 mEq/L (3.5-5.1)
[2017-11-24 05:40] LABS: % Iron Saturation 24 % (20-55); Iron 39 mcg/dL (65-175); Transferrin 114 mg/dL (203-362)
[2017-11-24 05:54] LABS: Ferritin 875 ng/mL (20-250)
[2017-11-24] MEDS: Aspirin 81 MG TAB.CHEW PO SCH (09:51)
[2017-11-24] MEDS: Vancomycin Oral Soln 125 MG/2.5 ML UDC PO SCH ×3 (09:52→16:50)
[2017-11-24] MEDS: amLODIPine 5 MG TABLET PO SCH (09:52)
--- NOTE | 2017-11-24 11:27 | Discharge Summary ---
<Lolis Mendez - Last Filed: 11/24/17 12:23> - NOTES TO OUTPATIENT PROVIDER Notes to Outpatient Provider: Per ID recs: PO Vanc until 11/29 for C. diff, Augmentin 875mg until 12/02 for Aspiration PNA. Pureed diet. Aggrenox changed to ASA and Nifedipine to Norvasc and lisinopril due to aspiration risk with larger extended release tablets. Orders not resulted at time of discharge: Pending orders 11/18/17 20:02 Culture,Sputum with Gram Stain [RM] Routine Date of Encounter: 11/24/17 Time of Encounter: 11:21 - Discharge Diagnosis (1) Hospital-acquired pneumonia Priority: Primary Status: Acute (2) Clostridium difficile colitis Priority: Secondary Status: Acute (3) Hypokalemia Priority: Secondary Status: Acute (4) Hypertension Priority: Secondary Status: Chronic Qualifiers: Hypertension type: essential hypertension Qualified Code(s): I10 - Essential (primary) hypertension (5) Dementia Priority: Secondary Status: Suspected Qualifiers: Dementia type: unspecified type Dementia behavioral disturbance: without behavioral disturbance Qualified Code(s): F03.90 - Unspecified dementia without behavioral disturbance (6) Acute kidney injury superimposed on chronic kidney disease Priority: Secondary Status: Acute (7) CVA (cerebral vascular accident) Priority: Secondary Status: Chronic Qualifiers: CVA mechanism: embolism Precerebral and cerebral artery: middle cerebral artery Laterality of affected vessel: right Qualified Code(s): I63.411 - Cerebral infarction due to embolism of right middle cerebral artery (8) DVT prophylaxis Priority: Secondary Status: Acute Hospital course: Mr. Sheth is a 82 year old male who presented to [facility] from the [place] rehab facility on 11/18/17 for continued fever on vancomycin, meropenem and Levaquin. CT chest revealed evidence of aspiration pneumonia and residual changes from GERD. On presentation the patient was afebrile with altered mental status. He had an elevated creatinine of 2.57. Per ID recommendations he was started on vancomycin and Zosyn. On 11/19/17 he was found to have C. difficile and was therefore placed on by mouth vancomycin in addition to IV vancomycin and Zosyn. Endoscopy on 11/20/17 revealed no strictures but did show evidence of esophagitis which was treated with PPI and Carafate with meals. He underwent a speech evaluation and GI consult for possible PEG placement but was found to be not a candidate and a pureed diet was recommended. [facility] H [facility]. Antibiotics were deescalated to Zosyn only per ID recommendations with eventual switched to by mouth Augmentin 875 mg on 11/23/17. Blood and urine cultures have been negative to date at our facility. Repeat sputum cultures were not obtained due to inability of the patient to provide such. On admission the patient's nifedipine and Aggrenox were changed to aspirin and Norvasc as he seemed to be struggling to swallow extended release capsules. The patient's blood pressure remained stable on Norvasc until 11/23 when lisinopril 10 was added. A KI found on admission has improved with IV fluids and oral rehydration with assistance, creatinine upon discharge was 1.94. The patient's mental status seems to waver from day to day at times being alert and oriented 3 while others he makes unintelligible speech and is not oriented, likely dementia associated with his previous stroke versus Hospital delirium. Per ID recommendations the patient is to continue on Augmentin 875 mg twice a day until 11/29 for management of his aspiration pneumonia and oral vancomycin until 12/02 to cover for C. difficile. The patient is stable for discharge back to the [facility]. Plan for discharge and follow-up were discussed with his daughters on 11/23/17. They agree with and understand the course of treatment plan including plan for transfer back to [place]. All questions answered. Discharge discussed with: patient, family, nurse, social work - Time Spent with Patient Total time spent providing and/or coordinating discharge services: Greater than 30 minutes - Discharge Medications Home Medications: NIFEdipine [Adalat cc] 90 mg PO DAILY 11/19/17 [History] Acetaminophen [Tylenol] 650 mg PO Q6HR PRN tablet 11/24/17 [Rx] Amoxicillin/Clavulanate [Augmentin] 875 mg PO BIDWM tablet 11/24/17 [Rx] Aspirin 81 mg PO DAILY tab.chew 11/24/17 [Rx] Atorvastatin [Lipitor] 40 mg PO HS tablet 11/24/17 [Rx] Lisinopril [Zestril] 10 mg PO DAILY tablet 11/24/17 [Rx] Pantoprazole [Protonix] 40 mg IVP Q12HR vial 11/24/17 [Rx] Sucralfate [Carafate] 1 gm PO ACHS tablet 11/24/17 [Rx] Vancomycin Oral Soln [Firvanq] 125 mg PO QID udc 11/24/17 [Rx] amLODIPine [Norvasc] 10 mg PO DAILY tablet 11/24/17 [Rx] Allergies/Adverse Reactions: 3 Allergy/AdvReac Type Severity Reaction Status Date / Time No Known Allergies Allergy Verified 11/18/17 21:02 Date of admission: 11/18/17 19:44 [facility] care physician: [facility] Consults: 11/18/17 21:38 Consult to Occupational Therapy [CONS] Routine Comment: Evaluate, develop and implement POC Reason for Consult: CVA with Left sided weakness Does patient have active BEDREST order?: No Is patient medically & hemodynamically stable?: Yes Consult to Physical Therapy [CONS] Routine Comment: Evaluate, develop and implement POC Reason for Consult: CVA w/ L weakness Does patient have active BEDREST order?: No Is patient medically & hemodynamically stable?: Yes Consult to Speech Therapy [CONS] Routine Comment: Evaluate, develop and implement POC Reason for Consult: Suspected aspiration pna s/p CVA Call Completed: No 11/19/17 10:15 Consult to Provider Relations Manager [CONS] Routine Reason for SW Consult: ECF placement 11/19/17 10:26 Consult to Gastroenterology [CONS] Routine Consulting Provider: Gastroenterology Lisa Reason for Consult: Aspiration PNA, Esophageal dysmotility Time Notified: 10:26 Call Completed: Yes 11/19/17 15:44 Consult to Infectious Diseases [CONS] Routine Consulting Provider: Infectious Disease [place] Reason for Consult: aspiration PNA, C. diff Call Completed: Yes Discharging clinician: Lolis Mendez Anticipated date of discharge: 11/24/17 - Constitutional Vitals: Temp Pulse Resp BP Pulse Ox 97.8 F 71 16 133/97 96 11/24/17 06:40 11/24/17 11:04 11/24/17 11:04 11/24/17 11:04 11/24/17 11:04 Exam: GEN: Ill appearing male breathing on room air, alert but not oriented. 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 CV: regular rate and rhythym, no murmurs, no BL LE pitting edema, no JVD RESP: No wheezes, no rales, no rhonchi, no clubbing ABD: BSx4, no organomegaly, nontender to palpation : No urinary or rectal tube EXT: 0/5 strength of LUE/LLE VASC: LUE edematous, likely dependent, dorsalis pedis and radial pulses 2/4 - Patient Status Disposition: Transfer [facility] Condition: Fair Functional capacity at discharge: bed bound Overall status at discharge: patient is progressing back to baseline - Discharge Instructions Instructions: Sepsis (DC), Clostridium Difficile Infection (DC), Chronic Dysphagia (DC), Pneumonia (DC) [facility] With: [facility] [Primary Care Provider[facility] - - Diet and Activity Activity: as per physical therapy Diet: other (pureed diet by spoon) <Tyson Kate - Last Filed: 11/24/17 15:55> Orders not resulted at time of discharge: Pending orders 11/18/17 20:02 Culture,Sputum with Gram Stain [RM] Routine Date of Encounter: 11/24/17 Hospital course: Mr. Sheth is a 82 year old male - Time Spent with Patient Total time spent providing and/or coordinating discharge services: Date of admission: 11/18/17 19:44 Primary care physician: [facility] Consults: 11/18/17 21:38 Consult to Occupational Therapy [CONS] Routine Comment: Evaluate, develop and implement POC Reason for Consult: CVA with Left sided weakness Does patient have active BEDREST order?: No Is patient medically & hemodynamically stable?: Yes Consult to Physical Therapy [CONS] Routine Comment: Evaluate, develop and implement POC Reason for Consult: CVA w/ L weakness Does patient have active BEDREST order?: No Is patient medically & hemodynamically stable?: Yes Consult to Speech Therapy [CONS] Routine Comment: Evaluate, develop and implement POC Reason for Consult: Suspected aspiration pna s/p CVA Call Completed: No 11/19/17 10:15 Consult to Provider Relations Manager [CONS] Routine Reason for SW Consult: ECF placement 11/19/17 10:26 Consult to Gastroenterology [CONS] Routine Consulting Provider: Gastroenterology [place] Reason for Consult: Aspiration PNA, Esophageal dysmotility Time Notified: 10:26 Call Completed: Yes 11/19/17 15:44 Consult to Infectious Diseases [CONS] Routine Consulting Provider: Infectious Disease Lisa Reason for Consult: aspiration PNA, C. diff Call Completed: Yes - Constitutional Vitals: Temp Pulse Resp BP Pulse Ox 97.8 F 81 17 146/74 93 11/24/17 06:40 11/24/17 15:33 11/24/17 15:33 11/24/17 15:33 11/24/17 15:33 - Attending Attestation I examined this patient and my medical decision-making was reviewed with the Resident Physician Dr. Marquez. I agree with the documented findings, disposition and treatment plan as described except to the extent set forth below.
[2017-11-24] MEDS: Sucralfate 1 GM TABLET PO SCH ×2 (12:40→16:50)
--- NOTE | 2017-11-24 13:04 | Physician Discharge Referral ---
ExtendedCare Referral Info Transfer To: [facility] Provider in Charge after Transfer: PCP Institutional Level of Care: Skilled - Diagnosis (1) Hospital-acquired pneumonia Priority: Primary Status: Acute (2) Clostridium difficile colitis Priority: Secondary Status: Acute (3) Hypokalemia Priority: Secondary Status: Acute (4) Hypertension Priority: Secondary Status: Chronic (5) Dementia Priority: Secondary Status: Suspected (6) Acute kidney injury superimposed on chronic kidney disease Priority: Secondary Status: Acute (7) CVA (cerebral vascular accident) Priority: Secondary Status: Chronic (8) DVT prophylaxis Priority: Secondary Status: Acute - Transfer Medications Home Medications: NIFEdipine [Adalat cc] 90 mg PO DAILY 11/19/17 [History] Acetaminophen [Tylenol] 650 mg PO Q6HR PRN tablet 11/24/17 [Rx] Amoxicillin/Clavulanate [Augmentin] 875 mg PO BIDWM tablet 11/24/17 [Rx] Aspirin 81 mg PO DAILY tab.chew 11/24/17 [Rx] Atorvastatin [Lipitor] 40 mg PO HS tablet 11/24/17 [Rx] Lisinopril [Zestril] 10 mg PO DAILY tablet 11/24/17 [Rx] Pantoprazole [Protonix] 40 mg IVP Q12HR vial 11/24/17 [Rx] Sucralfate [Carafate] 1 gm PO ACHS tablet 11/24/17 [Rx] Vancomycin Oral Soln [Firvanq] 125 mg PO QID udc 11/24/17 [Rx] amLODIPine [Norvasc] 10 mg PO DAILY tablet 11/24/17 [Rx] Allergies/Adverse Reactions: 3 Allergy/AdvReac Type Severity Reaction Status Date / Time No Known Allergies Allergy Verified 11/18/17 21:02 - Respiratory Orders None (prn for comfort) Smoking Cessation: Smoking cessation has been advised. For more information, call the [place] Tobacco Quit Line at 8-992-TFNZ-NOW. - Ancillary Orders May use pressure relief devices daily prn - Advance Directives Code Status: Full Code - Mobility Orders Chair, Ambulate (as tolerated, with assistance per PT/OT), Other - Rehabiliation Orders Rehab Potential: Fair - Diet Orders Pureed (with elevated HOB, requires assistance with feedings) CERTIFICATION: I certify that the transfer of the above named patient to an Extended Care Facility is necessary for the continuing treatment of the diagnosis listed. The above information is true and accurate reflection of patient's current condition. Confidential - Redisclosure prohibited without a patient's written consent.
[2017-11-24 15:33] VITALS: BP 146/74
== END 2017-11-24 17:45 | DRG 871 ==
LOC: ICNU 19:44 → SUATTDRO 19:44 → 2NENU 11-21 16:16
PROVIDERS: ADMIT Family Medicine; ATTEND Student in an Organized Health Care Education/Training Program